=== PATIENT | male | born 1930 | race Caucasian/White ===

== ENCOUNTER 2018-11-21 15:37 | Inpatient (IN) | payer MEDICARE, OTHER ==
[~2018-11-21] VITALS: Ht 160 cm; Wt 56.4 kg
--- NOTE | ~2018-11-21 | PR ---
[place], [place] PROGRESS NOTE NAME: AICHA CLAYTON UNIT #: [id number] ROOM: 314 DOCTOR: NATALIYA BOYER MD BIRTHDATE: [birth year] DOS: 11/24/2018 INTERVAL NOTE CHIEF COMPLAINT: "Oh, good morning, I am coming to breakfast." SUMMARY OF THE VISIT: The patient was interviewed in his room as he was getting ready to go down to breakfast. He engaged readily in superficial, but somewhat confused conversation. There was no agitation or aggression. There was no mood lability. He did have processing issues and hence was somewhat disjointed, but pleasantly so. Outwardly, there were no signs of medication side effects. MENTAL STATUS: He remains alert and oriented to person, place, but not time. Mood does seem to be trending towards euthymia. Affect is much more appropriate. There is no artis, hypomania or psychosis. He does process conversation slowly and short term memory is poor. PLAN: I will increase Namenda from 5 mg a day to 5 mg twice a day as a plan to target at 10 mg b.i.d. dosing. I will check a valproic acid level in the a.m. to ensure that it is therapeutic. Continue to engage in individual and callaway milieu activity, returning to the least restrictive environment when psychiatrically stable. NATALIYA BOYER MD CM:PNTRANS [phone] NATALIYA BOYER MD 11/24/18 1229 interface
--- NOTE | ~2018-11-21 | PR ---
[place], [place] PROGRESS NOTE NAME: AICHA CLAYTON UNIT #: [id number] ROOM: 314 DOCTOR: JERE MIXON CNP BIRTHDATE: [birth year] DOS: 11/27/2018 CHIEF COMPLAINT: "Good morning." SUMMARY OF VISIT: The patient was then interviewed as he lies in bed. The patient was sleeping whenever I entered his room; however, he did arouse easily when I called his name. The patient reports that he slept well last night and that his appetite has been good. He reports that his mood is happy. The patient denies feeling irritable or agitated and he denies any anxiety. Staff reports that the patient has been pleasant and cooperative. He has not displayed any aggressive or anxious episodes. The patient did sleep well. He has been compliant with medication. MENTAL STATUS EXAMINATION: The patient is alert and oriented to person, place and time. He was pleasant and cooperative with me. No artis or hypomania noted. No delusions or paranoia noted. No psychotic symptoms noted. No auditory or visual hallucinations noted. The patient's mood was euthymic. His affect was congruent with mood. PLAN: I am going to increase the patient's Namenda 10 mg twice a day to get maximum benefit of the medication to help with his increased awareness, cognition, and his participation in activities of daily living. We will continue to monitor the patient for side effects and tolerability of the medication. Continue to encourage the patient to engage in individual and callaway milieu activity. Continue fall and safety precautions. Plan is to return the patient to the least restrictive environment once he is considered psychiatrically stable. Jere Mixon CNP CM:PNTRANS [phone] JERE MIXON CNP 11/28/18 0037 interface
--- NOTE | ~2018-11-21 | DS ---
[place], [place] DISCHARGE SUMMARY [id number] #: [id number] ROOM: 314 DOCTOR: NATALIYA BOYER MD BIRTHDATE: [birth year] DOS: 12/07/2018 CHIEF COMPLAINT: "I am here because my legs swelled up and I fell down the stairs." HISTORY OF PRESENT ILLNESS: This is an 88-year-old white male who is a resident of [place] in [place]. The patient was admitted to the [facility] Unit at [facility] due to significant behavioral changes. He has become increasingly combative and resistive to care. Most recently, he locked and barricaded himself into his bathroom attempting to stuff the toilet paper into the sink and toilet causing them to overflow. He was very religiously preoccupied and was religiously chanting well locked into the bathroom. He has become episodically noncompliant with his medication and has been resistive to hands on care to the point where he has actually become physically aggressive towards staff. These represent a significant change in his mental status and he was subsequently admitted to the U to rule out any organic factors to attempt to stabilize on medication and to determine the least restrictive environment to which he could return when stable. SUMMARY OF HOSPITAL COURSE: The patient was admitted to the unit where his citalopram was discontinued in lieu of Depakote in the hope that this would stabilize his mood lability. His donepezil was also discontinued in lieu of Exelon patch, which was started at 4.6 mg daily and during the course of his stay was gradually increased to its maximum dose of 13.3 mg daily. Additionally, this was augmented with Namenda 5 mg a day and again during the course of his stay, the dose of the Namenda was brought to its maximum dose of 10 mg twice daily. After a while it became very evident that the patient was suffering from a significant depressive component as he became very withdrawn and isolative in his room, remained in his bed, refused to eat or drink and was delusional regarding multiple buddhism topics. Along these lines, the Depakote was discontinued due to ineffectiveness and he was started on Remeron 15 mg at bedtime, which was augmented later with Zyprexa 2.5 mg at bedtime to decrease the psychotic component and also stabilize his mood. These medications when given in conjunction had a dramatic improvement. The patient began to leave his room spontaneously, did not resist care and actually was able to assist himself in dressing. He began eating 100% of his meals and was no longer agitated or aggressive. He tolerated the current medication regimen well and there was no sedation, somnolence, extrapyramidal symptoms or tardive dyskinesia noted. Once the patient was stabilized, it was felt that he could safely return back to [place] in [place]. MENTAL STATUS AT DISCHARGE: The patient is alert and oriented to person, place and that he knows he is in the hospital, certainly not to time. Mood does seem to be euthymic and he smiles readily upon approach and engages in brief superficial conversation. There is no symptom suggestive of hypomania or artis and there was no longer buddhism preoccupation or any type of delusion noted. There was no paranoia. Short term memory continued to have gaps, otherwise he was intact. DIAGNOSES UPON DISCHARGE: Major depression, recurrent with psychotic features [place], [place] DISCHARGE SUMMARY NAME: AICHA CLAYTON UNIT #: [id number] ROOM: 314 DOCTOR: NATALIYA BOYER MD BIRTHDATE: [birth year] and Alzheimer's dementia. DISPOSITION: The patient is returning to [facility] in [place]. All of his prescriptions have been e-scribed to the [facility] in [place]. At the time of discharge, he was medically and psychiatrically stable. NATALIYA BOYER MD CM:DISCHARG [phone] NATALIYA BOYER MD 12/07/18 1249 interface
--- NOTE | ~2018-11-21 | PR ---
[place], [place] PROGRESS NOTE NAME: AICHA CLAYTON UNIT #: [id number] ROOM: 314 DOCTOR: EJRE MIXON CNP BIRTHDATE: [birth year] DOS: 11/26/2018 CHIEF COMPLAINT: "I can get up to talk to you." SUMMARY OF THE VISIT: The patient was interviewed as he is lying in his bed. He did engage readily in conversation with me. He reports that he slept well last night and feels rested today. He reports that his appetite is good. He denies feeling anxious, agitated or irritable. Staff reports that the patient has been pleasant. He did agree to get a shower this morning. MENTAL STATUS EXAMINATION: The patient is alert and oriented to person, place and time with some memory gap. He was pleasant and cooperative with me. No artis or hypomania noted. No delusions or paranoia noted. No psychotic symptoms noted. No auditory or visual hallucinations noted. The patient's mood was calm. No irritability or aggression noted. Affect congruent with mood. PLAN: We will increase the patient's Exelon to 13.3 mg patch daily this will help to augment the Namenda and increase the patient's awareness and cognition. We will continue to monitor for effectiveness and side effects of medication. We will continue to encourage the patient to engage in individual and callaway milieu activity. Continue fall and safety precautions. Plan is to return to the patient to least restrictive environment once he is considered psychiatrically stable. Jere Mixon CNP CM:PNTRANS [phone] JERE MIXON CNP 11/27/18 0909 interface
--- NOTE | ~2018-11-21 | PR ---
[place], [place] PROGRESS NOTE NAME: AICHA CLAYTON UNIT #: [id number] ROOM: 314 DOCTOR: NATALIYA BOYER MD BIRTHDATE: [birth year] DOS: 12/04/2018 CHIEF COMPLAINT: "Oh, good morning. Breakfast was good." SUMMARY OF THE VISIT: The patient was interviewed as he was finishing his breakfast. He had just eaten in the last bit of [place] on his plate. Everything else was gone. He engaged readily in conversation, shaking my hand and being rather pleasant, although superficial. There was no agitation or aggression. There were no bizarre statements or any kind of other comments. He did seem to be alert and able to engage readily. MENTAL STATUS: He is alert and oriented to person, place, not time. Mood does seem to be more euthymic. Affect is more appropriate. There is no artis, hypomania or psychosis. Short term memory has gaps. PLAN: I will continue his current psychotropic regimen, engage in individual and callaway milieu activity, returning to the least restrictive environment when psychiatrically stable. NATALIYA BOYER MD CM:PNTRANS 9 [phone] NATALIYA BOYER MD 12/04/18930 interface
--- NOTE | ~2018-11-21 | PR ---
[place], [place] PROGRESS NOTE NAME: AICHA CLAYTON UNIT #: [id number] ROOM: 314 DOCTOR: NATALIYA BOYER MD BIRTHDATE: [birth year] DOS: 12/05/2018 INTERVAL NOTE CHIEF COMPLAINT: "Oh, good morning, thank you for asking." SUMMARY OF THE VISIT: The patient was interviewed as he was sitting waiting for breakfast. As I approached, he smiled readily and reached his hand out to shake mine and engaged readily in conversation that was pleasant and bright. He reports that he slept well and actually feels hungry and ready for breakfast. This is in granados contrast to the same time last week when the patient was barely eating or drinking and barely conversant. He was even spontaneous and wishing me a good morning and asking how I was feeling. MENTAL STATUS: He is alert and oriented to person, possibly place, not to time. Mood does seem to be strongly trending towards euthymia. Affect is much more appropriate. Speech rate and pattern is much more spontaneous and his responses tend to be more appropriate. There is no hypomania or artis. There is no gross psychosis. Short-term memory has gaps, otherwise he is intact. PLAN: I will continue his current psychotropic regimen, continue to engage in individual and callaway milieu activity, returning to the least restrictive environment when psychiatrically stable. NATALIYA BOYER MD CM:PNTRANS [phone] NATALIYA BOYER MD 12/05/18 0951 interface
--- NOTE | ~2018-11-21 | PR ---
[place], [place] PROGRESS NOTE NAME: AICHA CLAYTON UNIT #: [id number] ROOM: 314 DOCTOR: NATALIYA BOYER MD BIRTHDATE: [birth year] DOS: 12/06/2018 CHIEF COMPLAINT: "Oh, I am pretty good doctor." SUMMARY OF THE VISIT: The patient was interviewed as he was finishing his breakfast. At the time I interviewed him, he had most of his breakfast already eaten. He stopped and engaged in pleasant conversation. He was much more spontaneous and much more conversant than he had been at this time last week. He reports improved sleep and appetite and nurses concurred that both of these have improved over the last week. He also reports no side effects from the medications themselves. MENTAL STATUS: He is alert and oriented to person, place, approximate to time. Mood now is strongly trending towards euthymia. Affect is much more appropriate. There is no artis or hypomania. There is still some gap in short-term memory, but otherwise he is intact. PLAN: I will continue his current psychotropic regimen. Continue to engage in individual and callaway milieu activity with the ultimate plan to return to the least restrictive environment when psychiatrically stable. NATALIYA BOYER MD CM:PNTRANS [phone] NATALIYA BOYER MD 12/06/18 1309 interface
--- NOTE | ~2018-11-21 | PR ---
[place], [place] PROGRESS NOTE NAME: AICHA CLAYTON UNIT #: [id number] ROOM: 314 DOCTOR: JERE MIXON CNP BIRTHDATE: [birth year] DOS: 11/25/2018 CHIEF COMPLAINT: "Did anybody here see Jere?" SUMMARY OF VISIT: The patient was interviewed as he sat on the edge of his bed. He engaged readily in conversation with me. The patient reports that he slept well and that his appetite has been good. The patient denies feeling agitated or irritable. He denies feeling anxious. Staff reports that the patient has been taking medications as prescribed. No behaviors exhibited. MENTAL STATUS EXAMINATION: The patient was alert and oriented to person, place and time. He was pleasant and cooperative with me. No artis or hypomania noted. No delusions or paranoia noted. No psychotic symptoms noted. No auditory or visual hallucinations noted. The patient's mood was calm. Affect congruent with mood. No agitation or aggression noted. PLAN: I will increase the patient's Namenda to 5 mg in the morning and 10 mg at bedtime to increase awareness, cognition and ability for the patient to continue participating in activities of daily living. The patient's VPA level was 97.1. I will continue to monitor the patient for any side effects of medication, continue to encourage the patient to engage in individual and callaway milieu activity, continue fall and safety precautions. Plan is to return the patient to the least restrictive environment once he is considered psychiatrically stable. Jere Mixon CNP CM:PNTRANS [phone] JERE MIXON CNP 11/25/18 1039 interface
--- NOTE | ~2018-11-21 | WRIGHTHP ---
[place], [place] PATIENT HISTORY AND PHYSICAL EXAM [id number] #: [id number] ROOM: 316 DOCTOR: NATALIYA BOYER MD BIRTHDATE: [birth year] DOS: 11/22/2018 INITIAL PSYCHIATRIC EVALUATION CHIEF COMPLAINT: "I am here because my legs swelled up and I fell down the steps." HISTORY OF PRESENT ILLNESS: This is an 88-year-old white male who is a resident of [facility]. The patient was admitted to the [facility] Unit at [facility] due to significant behavioral changes. The patient has become increasingly combative and resistive to care. Most recently, he locked himself into his bathroom attempting to barricade the door. He was stuffing toilet paper into the sink and the toilet causing them to overflow. He has been extremely religiously preoccupied. He has been episodically noncompliant with his medication and has been resistive to hands on care to the point where he has been physically aggressive towards staff. Given this significant change in mental status, the patient was admitted to rule out organic factors to attempt to stabilize on medication, to engage in individual and callaway milieu activity and to return to the least restrictive environment when psychiatrically stable. PAST MEDICAL HISTORY: Remarkable for major depression, rectal bleeding, TIAs, left inguinal hernia, pacemaker insertion and Alzheimer's dementia. SOCIAL HISTORY: He does not smoke cigarettes, use illicit drugs or drink alcohol. ALLERGIES: He lists no known allergies. STRENGTHS: Ambulatory, good verbal skills. WEAKNESSES: Cognitive decline, poor coping skills. MENTAL STATUS: Upon admission, the patient is alert and oriented to person, place, approximate to time. He was rather tangential in his thinking and would go off into a rather lengthy explanation about things that oftentimes was not an answer to the question asked of him. He was pleasant, however, in doing so. He smiled readily. He was not agitated or aggressive. I do not see signs of hypomania or artis. I also did not see any prominent auditory or visual hallucinations or delusions. There is no religiosity during my initial interaction with him. DIAGNOSES: Intermittent explosive disorder, Alzheimer's dementia. PLAN: I have already discontinued his citalopram in lieu of Depakote and discontinued his donepezil in lieu of Exelon patch. I will add now Namenda 5 mg a day to augment the effectiveness of the Exelon patch. We will engage in individual and callaway milieu activity with the ultimate plan to return to the least restrictive environment when psychiatrically stable. [place], [place] PATIENT HISTORY AND PHYSICAL EXAM NAME: AICHA CLAYTON UNIT #: [id number] ROOM: [facility] DOCTOR: NATALIYA BOYER MD BIRTHDATE: [birth year] NATALIYA BOYER MD CM:HISPHYS:PATIENT HISTORY AND PHYSICAL EXAMINATION [phone] NATALIYA BOYER MD 11/22/18 0910 interface
[2018-11-21] MEDS ORDERED: ASPIR LOW81 MG PO (16:17)
[2018-11-21] MEDS ORDERED: COREG3.125 MG PO (16:18)
[2018-11-21] MEDS ORDERED: CITALOPRAM10 MG PO (16:19)
[2018-11-21] MEDS ORDERED: ARICEPT10 M1 PO (16:19)
[2018-11-21] MEDS ORDERED: IRON325 M3 PO (16:20)
[2018-11-21] MEDS ORDERED: LASIX40 MG PO (16:21)
[2018-11-21] MEDS ORDERED: XALATAN 0.005%2.5 ML INTRAOC (16:22)
[2018-11-21] MEDS ORDERED: ZESTRIL2.5 MG PO (16:22)
[2018-11-21] MEDS ORDERED: PRILOSEC20 M1 PO (16:24)
[2018-11-21] MEDS ORDERED: THEREMS-M1 EACH PO (16:24)
[2018-11-21] MEDS ORDERED: VITAMIN D31000 UNI1 PO (16:25)
[2018-11-21] MEDS ORDERED: VITAMIN E400 UNI2 PO (16:26)
[2018-11-21] MEDS ORDERED: COUMADIN2 M1 PO (16:28)
[2018-11-21] MEDS ORDERED: COUMADIN3 M1 PO (16:30)
--- NOTE | 2018-11-21 22:25 | NUR ---
AICHA CLAYTON a 88 year old M admitted via stretcher from the ADMITTING as a voluntary admission. Arrived on unit at 2225. ALLERGIES: NO KNOWN ALLERGIES. Vital signs are: 98.2-81-18 133/70. The client signed the following forms with stated understanding: Authorization For The Release of Medical Information, Clothing List, Consent to Voluntary Admission and Hospitalization, Consent and Release Forms/Receipt of Rights, Acknowledgement of Advance Directive Information, Behavioral Health Consent Form, and Informed Consent of Medications. Admitted under the services of Dr. ROSALIND LLANOS,[facility]. A search was conducted and hazardous articles were removed. Client was oriented to the unit. JOELLEN ROSALES PATIENT ADMITTED FROM [facility]. PATIENT WITH SCATTERED BRUISES TO BILATERAL UPPER EXTREMITIES AT VARIOUS STAGES OF HEALING AND SCRATCH TO RIGHT LOWER BACK WITH NO DRAINAGE. PATIENT WITH PACEMAKER AT LEFT CHEST WALL. PATIENT WITH HERNIA PRESENT TO LEFT LOWER QUADRANT ABOVE GROIN REGION. PATIENT WITH LEFT FOURTH LAYING UNDER THIRD TOE. TOE NAILS WITH JAGGED EDGES
--- NOTE | 2018-11-21 22:28 | NUR ---
DR. ARITA NOTIFIED OF NEW ADMISSION, STATED TO PUT CONSULT UNDER DR. CA.
[2018-11-21 22:37] VITALS: BP 133/70
[2018-11-21 22:41] VITALS: BP 133/70
--- NOTE | 2018-11-21 23:50 | NUR ---
DR. SINGLETARY ON FLOOR TO ASSESS PT. UPDATE PROVIDED.
--- NOTE | 2018-11-22 00:30 | NUR ---
DR SINGLETARY WITH ATTEMPT TO HAVE PATIENT SIGN ADVANCE DIRECTIVE DUE TO LIMITED INFORMATION OF CURRENT ADVANCE DIRECTIVE. PATIENT UNABLE TO SPECIFY WHICH DNR CODE STATUS AT THIS TIME. DR SINGLETARY WOULD LIKE HOSPITALIST IN THE MORNING TO ATTEMPT TO CLARFITY DNR CODE STATUS. AT THIS TIME, DR SINGLETARY WOULD CONSIDER PATIENT A DNRCCA UNTIL FURTHER CLARIFICATION
--- NOTE | 2018-11-22 00:35 | NUR ---
URINE SPECIMEN COLLECTED. URINE YELLOW AND WITH NO ODOR. URINE OUTPUT OF 300ML. NO COMPLAINTS OF DYSURIA
[2018-11-22 01:11] LABS: BILIRUBIN NEGATIVE (NEGATIVE); BLOOD NEGATIVE (NEGATIVE); CLARITY CLEAR (CLEAR); COLOR YELLOW (YELLOW); GLUCOSE NEGATIVE (NEGATIVE); KETONE NEGATIVE (NEGATIVE); LEUKO ESTERASE 1+ (NEGATIVE); NITRITE NEGATIVE (NEGATIVE); PH 5.5 (5.0-9.0); SPECIFIC GRAVITY 1.015 (1.005-1.030); UROBILINOGEN 0.2 E.U./dl (0.2-1.0)
[2018-11-22 01:33] LABS: HYALINE CAST 20-25
--- NOTE | 2018-11-22 01:52 | NUR ---
24 HR chart check completed.
--- NOTE | 2018-11-22 05:47 | NUR ---
Q15 MINUTE CHECKS MAINTAINED THROUGH OUT THE NIGHT. NOTED TO HAVE SLEPT APPROXIMATELY 4 HOURS OF SLEEP. PT DID WAKE UP ONCE INCONTINENT OF URINE.
[2018-11-22 07:19] LABS: BASO % 0.6 % (0.0-1.0); EOS # 0.2 10*3/uL (0.0-0.4); HEMATOCRIT 31.8 % (42.0-52.0); HEMOGLOBIN 9.6 g/dl (14.0-18.0); LYMPH # 1.3 10*3/uL (1.3-4.4); LYMPH % 24.4 % (27.0-41.0); MEAN CELL VOLUME 96.1 fl (80.0-94.0); MEAN CORPUSCULAR HGB CONC 30.2 g/dl (33.0-37.0); MONO # 0.6 10*3/uL (0.1-1.0); MONO % 11.8 % (3.0-9.0); NEUT # 3.2 10*3/uL (2.3-7.9); NEUT % 59.2 % (47.0-73.0); PLATELET COUNT AUTOMATED 164 10*3/uL (130-400); RED BLOOD COUNT 3.31 10*6/uL (4.50-5.90); RED CELL DISTRI WIDTH 13.6 % (0-14.5); WHITE BLOOD COUNT 5.4 10*3/uL (4.8-10.8)
[2018-11-22 07:43] LABS: POTASSIUM 4.2 mmol/L (3.5-5.1)
[2018-11-22 07:45] VITALS: BP 112/57
--- NOTE | 2018-11-22 07:49 | NUR ---
PHYSICAL THERAPY Nursing screen received. Physical therapy orders received. Thank you. Kathi Hatch,PT,DPT
--- NOTE | 2018-11-22 08:00 | NUR ---
Treatment Plan meeting with Dr. Looney RN, AT, SW and Wrapper Caser. Plan for discharge next week. Pt. arrived from [facility]. Will reach out to facility today to discuss discharge Planning.
--- NOTE | 2018-11-22 08:00 | NUR ---
Patient resting quietly with no c/o discomfort. Respirations easy and regular. Vital signs stable. No overt distress. MELISSA MACHADO
[2018-11-22 08:02] LABS: ALBUMIN 3.5 gm/dl (3.1-4.5); CREATININE 1.68 mg/dL (0.70-1.30); THYROID STIM HORMONE (HS) 1.51 uIU/ml (0.358-4.75); TOTAL PROTEIN 7.8 gm/dL (6.4-8.2)
--- NOTE | 2018-11-22 09:00 | NUR ---
DR. SANDOVAL NOTIFED OF PODIARTY CONSULT FOR NAIL CARE.
--- NOTE | 2018-11-22 11:40 | NUR ---
DR. BARBER AND DR. SOLORIO ON UNIT AT THIS TIME TO PERFORM NAIL CARE
--- NOTE | 2018-11-22 11:49 | NUR ---
AM GROUP/EXERCISE AND DISCUSSION PT ATTENDED AND PARTICIPATED IN ALL GROUP ACTIVITIES. PT EXHIBITED NO INAPPROPRIATE BEHAVIORS DURING GROUP. PT WAS VERY INVOLVED IN THE GROUP DISCUSSION.
--- NOTE | 2018-11-22 12:01 | NUR ---
Spoke with [facility] At [facility]. Pt. will return to [facility] at discharge when stable.
--- NOTE | 2018-11-22 15:00 | NUR ---
DR. HAWKINS NOTIFIED REGUARING PATIENT'S CODE STATUS WITH PATIENT'S DNR FORM FROM FACILITY.
--- NOTE | 2018-11-22 15:06 | NUR ---
PT ALERT AND ORIENTED X4, PLEASANT, COOPERATIVE WITH ASSESSMENT. PT WITHDRAWN TO SELF, DID NOT WISH TO SOCIALIZE WITH PEERS, WANTED TO STAY IN ROOM. PT REDIRECTED AND ENCOURAGED TO INTERACT WITH PEERS. PT ASSESSED FOR MOOD, AFFECT, AND ORIENTATION LEVEL. ASSESSED FOR DEPRESSED MOOD, SI/HI. ASSESSED FOR HALLUCINATIONS AND DELUSIONS. ASSESSED FOR ABILITY TO COMPLETE ADLs. ASSESSED FOR APPETITE AND SLEEP QUALITY. PT MOOD IS STABLE, AFFECT IS APPROPRIATE. PT ORIENTED TO ALL SPHERES. VERBAL RESPONSES APPROPRIATE TO CONTENT. ABLE TO VERBALIZE WANTS AND NEEDS TO STAFF. PT DENIES DEPRESSED MOOD, SI, INTENT OR PLAN. PT DENIES HALLUCINATIONS AND DELSUIONS. NO OVERT S/S OF ATTENDING TO INTERNAL STIMULI. PT AMBULATES INDEPENDENTLY IN HALLS WITH USE OF WHEELED WALKER, GAIT STEADY. PT ABLE TO FEED SELF WITH STAFF SETUP. CONTINENT OF BOWEL AND BLADDER. APPETITE GOOD, PT REPORTS GETTING RESTFUL SLEEP. WILL CONTINUE TO ENCOURAGE PARTICIPATION IN GROUP THERAPY FOR SOCIALIZATION AND SUPPORT. WILL CONTINUE TO MONITOR MOOD. WILL PROVIDE ASSISTANCE WITH ADL'S APPROPRIATE. WILL CONTINUE TO ENCOURAGE MEDICATION COMPLIANCE. WILL MONITOR APPETITE AND SLEEP QUALITY. CONTINUE Q15 MIN MONITORING PER POLICY FOR SAFETY.Y
--- NOTE | 2018-11-22 16:32 | NUR ---
Nursing screen and Occupational Therapy referral received. Thank you. Natalie Martínez OTR/l
--- NOTE | 2018-11-22 17:21 | NUR ---
PM GROUP/ MUSIC TRIVIA PT CHOSE NOT TO ATTEND BUT TO SLEEP IN BED AT THIS TIME. PT WILL CONTINUE TO BE ENCOURAGED TO ATTEND AND PARTICIPATE IN FUTURE GROUP SESSIONS.
[2018-11-22 20:40] VITALS: BP 113/87
--- NOTE | 2018-11-22 20:53 | NUR ---
EVENING/BINGO PT RESTING IN BED AT THIS TIME AND CHOSE TO CONTINUE SLEEPING. PT WILL CONTINUE TO BE ENCOURAGED OT ATTEND AN DPARTICIPATE IN FUTURE GROUP SESSIONS.
--- NOTE | 2018-11-23 00:07 | NUR ---
ALERT AND ORIENTED X4. ST/LT MEMORY DEFICITS NOTED. MOOD STABLE, PLEASANT, AND COOPERATIVE. DENIES HALLUCINATIONS, SI/HI, OR PAIN. NO S/S OF INTERACTING WITH INTERNAL STIMULI. NO DELUSIONAL THOUGHT PROCESS NOTED. REPIRATIONS EVEN AND UNLABORED ON ROOM AIR. MEDICATION COMPLIANT WITH NO DIFFICULTIES. ATE HS SNACK. GAIT STEADY WHILE UTILIZING WALKER. MILIEU SPECIALIST NOTIFIED THIS NURSE THAT PT IS BACK IN HIS ROOM AWAKE AND MAKING BIRD NOISES. FALLING STAR PROGRAM IN PLACE. Q15 MINUTE CHECKS MAINTAINED FOR SAFETY.
--- NOTE | 2018-11-23 00:25 | NUR ---
24 HR chart check completed.
--- NOTE | 2018-11-23 06:05 | NUR ---
Q15 MINUTE CHECKS MAINTAINED THROUGHOUT THE NIGHT. PT NOTED TO HAVE SLEPT APPROXIMATELY 4 HOURS OF INTERRUPTED SLEEP.
[2018-11-23 07:54] VITALS: BP 116/61
--- NOTE | 2018-11-23 08:00 | NUR ---
Treatment Plan meeting with Dr. Looney, RN, AT, SW and Bridge Toll Collector. Plan for discharge next week. Pt. is [employer] [facility]. Will return at discharge.
--- NOTE | 2018-11-23 08:16 | NUR ---
Patient resting quietly with no c/o discomfort. Respirations easy and regular. Vital signs stable. No overt distress. MELISSA MACHADO
--- NOTE | 2018-11-23 11:06 | NUR ---
Clinical Updates faxed to [facility] Attn: Nurse.
--- NOTE | 2018-11-23 11:35 | NUR ---
PHYSICAL THERAPY Physical therapy screen complete at this time. Patient does not required skilled PT services at this time. Thank you. Kathi Hatch,PT,DPT.
--- NOTE | 2018-11-23 12:01 | NUR ---
AM GROUP PT ATTENDED GROUP LATE AND READ FOR A LITTLE BIT BEFORE FALLING ASLEEP SITTING AT THE TABLE WITH THE GROUP. PT WAS EASILY AWAKENED. PT EXHIBITED NO INAPPROPRIATE BEHAVIORS DURING GROUP
--- NOTE | 2018-11-23 12:10 | NUR ---
Occupational Therapy referral received and screen completed. Nursing reports that patient is independent in functional mobility with wh walker and able to perform ADLs. At this time no further OT indicated. Thank you. Natalie Martínez OTR/L
--- NOTE | 2018-11-23 12:43 | NUR ---
Problem:PT ALERT AND ORIENTED X4, PLEASANT, COOPERATIVE WITH ASSESSMENT. PT WITHDRAWN TO SELF, DID NOT WISH TO SOCIALIZE WITH PEERS, WANTED TO STAY IN ROOM. Intervention; PT REDIRECTED AND ENCOURAGED TO INTERACT WITH PEERS. PT ASSESSED FOR MOOD, AFFECT, AND ORIENTATION LEVEL. ASSESSED FOR DEPRESSED MOOD, SI/HI. ASSESSED FOR HALLUCINATIONS AND DELUSIONS. ASSESSED FOR ABILITY TO COMPLETE ADLs. ASSESSED FOR APPETITE AND SLEEP QUALITY. Patient requested pastoral care. Result: PASTORAL CARE CAME IN TO TALK TO PATIENT, PATIENT TOLERATED INTERACTION WELL. PATIENT REMAINS SAFE ON THE UNIT. PATIENT GIVES VERBAL CONTRACT FOR SAFETY ON THE UNIT. PATIENT REMAIN SAFE ON THE UNIT, PATIENT DENIES ANY HI/SI. PLAN: CONTINUE TO MONITOR PATIENT FOR SAFETY, CONTINUE TO ENCOURAGE PATIENT TO ATTEND AND PARTICIPATE IN GROUPS, ENCOURAGE PATIENT TO SOCIALIZE WITH PEERS AND STAFF. PARTICIPATE IN GROUPS, Result: Plan:
[2018-11-23 20:37] VITALS: BP 118/65
--- NOTE | 2018-11-24 01:07 | NUR ---
NO ADVERSE BEHAVIORS NOTED. PT ALERT AND ORIENTED TO SELF, CONFUSED. MOOD STABLE. PT CALM, PLEASANT, AND COOPERATIVE. PT ISOLATIVE TO ROOM AND BED SINCE BEGINNING OF SHIFT, ONLY COMING DOWN FOR HS SNACK. PT MEDICATION COMPLIANT WITHOUT DIFFICULTY, UNABLE TO EDUCATE DUE TO COGNITION. PT DENIES SI/HI AND HALLUCINATIONS, NO NOTED RESPONDING TO INTERNAL STIMULI. NO PARANOIA/DELUSIONS OBSEVRED. NO PHYSICAL COMPLAINTS VOICED. PATIENT CURRENTLY LAYING DOWN WITH EYES CLOSED, RESPIRATIONS EASY AND REGULAR, NO SIGNS OR SYMPTOMS OF DISTRESS NOTED. PLAN IS TO PRESENT REALITY AND REDIRECT NEEDED. PROVIDE 1:1 FOR VENTILATION OF FEELINGS. ENCOURAGE MEDICATION COMPLIANCE AND EDUCATE. MAINTAIN Q 15 MIN CHECKS.
--- NOTE | 2018-11-24 01:20 | NUR ---
24 HOUR CHART CHECK COMPLETED.
--- NOTE | 2018-11-24 05:53 | NUR ---
PATIENT OBSERVED ON Q 15 CHECKS TO HAVE SLEPT APPROX 7 HOURS WITH NO AWAKENINGS OR SIGNS AND SYMPTOMS OF DISTRESS NOTED.
[2018-11-24 07:58] VITALS: BP 115/66
--- NOTE | 2018-11-24 08:00 | NUR ---
Treatment Plan meeting with Dr. Looney, RN, AT, SW and Stage Manager. Plan for discharge next week. Pt. to return to [facility].
--- NOTE | 2018-11-24 11:44 | NUR ---
[facility]U RETURNED CALL AND ADVISED THAT PT IS A DNRCC, ADVISED DR. HAWKINS AND HE STATED HE WILL COME AND SIGN THE PAPERWORK.
--- NOTE | 2018-11-24 11:48 | NUR ---
AM GROUP/BIRDHOUSES PT ATTENDED GROUP AND PARTICIPATED BY BUILDING A BIRDHOUSE AND WORKING A CROSSWORD PUZZLE. PT EXHIBITED NO INAPPROPRIATE BEHAVIORS DURING GROUP.
--- NOTE | 2018-11-24 15:38 | NUR ---
PM GROUP/LEISURE INTERESTS PT DID NOT ATTEND AFTERNOON GROUP THERAPY. PT WAS IN BED NAPPING
[2018-11-24 20:00] VITALS: BP 111/61
--- NOTE | 2018-11-25 00:24 | NUR ---
NO ADVERSE MOODS OR BEHAVIORS NOTED THIS SHIFT. ALERT TO SELF AND APPROXIAMTE TIME. CONFUSION AND ST/LT MEMORY DEFICITS NOTED. REORIENTATION INEFFECTIVE, REMAINS AT BASELINE. MOOD STABLE, ISOLATIVE TO SELF. ATE HS SNACK. MEDICATION COMPLAINT WITH NO DIFFICULTY. DENIES HALLUCINATIONS, SI/HI, OR PAIN. NO S/S OF INTERACTING WITH INTERNAL STIMULI. NO DELUSIONAL THOUGHT PROCESS NOTED. NO S/S OF DISTRESS NOTED. RESPIRATIONS EVEN AND UNLABORED ON ROOM AIR. STEADY WHILE AMBULATING WITH WALKER. INCONTINENT OF BLADDER. FALLING STAR PROGRAM IN PLACE. Q15 MINUTE CHECKS MAINTAINED FOR SAFETY.
--- NOTE | 2018-11-25 00:52 | NUR ---
24 HR chart check completed.
--- NOTE | 2018-11-25 05:35 | NUR ---
Q15 MINUTE CHECKS MAINTAINED THROUGHOUT THE NIGHT. NOTED TO HAVE SLEPT APPROXIMATELY 5 HOURS.
--- NOTE | 2018-11-25 08:00 | NUR ---
Treatment Plan meeting with Maxine GONZALEZ, RN, AT, SW and Elementary School Science Teacher. Plan for discharge next week. 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
[2018-11-25 09:35] VITALS: BP 117/97
--- NOTE | 2018-11-25 11:21 | NUR ---
DR. HUNTER ON UNIT TO ASSESS PT, UPDATE PROVIDED.
--- NOTE | 2018-11-25 12:05 | NUR ---
Spoke with Jac campbell Nurse at [facility]. Notified of plans to discharge next week. Pt. will return to [facility]. Clinical Updates faxed to facility.
--- NOTE | 2018-11-25 12:10 | NUR ---
AM GROUP PT DID NOT ATTEND MORNING GROUP THERAPY. PT WAS IN BED SLEEPING
--- NOTE | 2018-11-25 15:43 | NUR ---
PM GROUP/ART AND MUSIC PT CHOSE NOT TO ATTEND AFTERNOON GROUP THERAPY. PT STAYED IN ROOM TO NAP
[2018-11-25 20:38] VITALS: BP 116/66
--- NOTE | 2018-11-25 22:28 | NUR ---
P: PT ISOLATIVE TO ROOM THROUGHOUT THE DAY, COMING OUT FOR MEALS. REFUSED TO PARTICIPATE IN GROUPS/ACTIVITES I: ENCOURAGED PT TO PARTICIPATE IN GROUPS/ACTIVITES. ENCORUAGED SOCIALIZATION WITH STAFF AND PEERS R: PT ALERT TO PERSON, PLACE AND TIME. PT MED COMPLIANT WITHOUT DIFFICULTY, MED EDUCATION PROVIDED. NO HALLUCINATIONS OR DELUSIONS NOTED. PT DENIES ANY SUICIDAL THOUGHTS. PT CONTINUES TO COME OUT FOR MEALS ONLY, REFUSING TO PARTICIPATE IN GROUP. P: MONITOR PT BEHAVIORS ON Q15 MIN SAFETY CHECKS, ENCOURAGE GROUP PARTICIPATION AND SOCIALIZATION
--- NOTE | 2018-11-26 01:02 | NUR ---
Shift chart check completed.
--- NOTE | 2018-11-26 06:20 | NUR ---
PT SLEPT 6 HOURS THIS SHIFT. Q15 MINUTE SAFETY CHECKS MAINTAINED. SEE [facility] FLOWSHEET FOR SPECIFIC MONITORING.
[2018-11-26 06:40] VITALS: BP 118/72
--- NOTE | 2018-11-26 06:44 | NUR ---
MILIEU THERAPIST HEARD THUMP ON WALL WHILE COMPLETING HOC IN THE ADJOINING ROOM. MILIEU WENT TO INVESTIGATE AND NOTED PATIENT LEANING AGAINST THE WALL. LIGHT WAS OUT AND PT STATED HE WAS WALKING TO THE RESTROOM AND THOUGHT HE COULD SEE OK AND LOST HIS BALANCE AND FELL AGAINST THE WALL. VS STABLE. AREA CLEANSED WITH NSS AND TREATMENT APPLIED. DR ARITA NOTIFIED ON RESIDENT LUMBER DRIVER NUMBER. SHIFT SUPERVISIOR, JANA, UPDATED. PT IS HIS OWN PERSON AT THIS TIME. A&O X3. PT WAS LAUGHING ABOUT THE INCIDENT. V INCIDENT COMPLETED. ALL DI SCREENS COMPLETED AND CARE PLAN UPDATED.
[2018-11-26 07:53] VITALS: BP 116/57
--- NOTE | 2018-11-26 08:20 | NUR ---
Patient resting quietly with no c/o discomfort. Respirations easy and regular. Vital signs stable. No overt distress. MELISSA MACHADO
--- NOTE | 2018-11-26 11:59 | NUR ---
AM GROUP/EXERCISES/DISCUSSION PT REMAINED IN BED AT THIS TIME AN DIWLL CONTINUE TO BE ENCOURAGED TO ATTEND AN DPARTICIPATE IN FUTURE GROUP SESSIONS.
--- NOTE | 2018-11-26 15:37 | NUR ---
PT ISOLATIVE TO ROOM. PT ASSESSED FOR ORIENTATION LEVEL, MOOD AND AFFECT. ASSESSED FOR DEPRESSED MOOD, SI/HI. ASSESSED FOR HALLUCINATIONS AND DELUSIONS. ASSESSED FOR SLEEP QUALITY AND APPETITE. REDIRECTED OUT OF ROOM TO INTERACT WITH PEERS, ENCOURAGED TO PARTICIPATE IN GROUP THERAPY. PT ALERT, ORIENTED X3. MOOD IS STABLE, AFFECT IS BLUNTED. PT DENIES DEPRESSED MOOD. DENIES SI, INTENT OR PLAN. DENIES HALLUCINATIONS AND DELUSIONS. NO OVERT S/S OF ATTENDING TO INTERNAL STIMULI NOTED. PT STATES HE IS SLEEPING WELL AND EATING WELL. PT ONLY WILL COME OUT OF ROOM FOR MEALS DESPITE REDIRECTION, EDUCATION, AND ENCOURAGEMENT. WILL CONTINUE TO ENCOURAGE PT TO PARTICIPATE IN [facility] FOR SOCIALIZATION AND SUPPORT. WILL REDIRECT AND EDUCATE APPROPRIATE. WILL CONTINUE TO ENCOURAGE MEDICATION COMPLIANCE. Q 15 MIN MONITORING PER POLICY FOR SAFETY.
--- NOTE | 2018-11-26 15:58 | NUR ---
PM GROUP/LEISURE SKILLS PT CHOSE TO REMAIN IN BED AT THIS TIME. PT WILL BE ENCOURAGED TO ATTEND AND PARTICIPATE IN FUTURE GROUP SESSIONS.
--- NOTE | 2018-11-26 19:13 | NUR ---
Shift chart check completed.
[2018-11-26 20:00] VITALS: BP 105/56; BP 116/74
--- NOTE | 2018-11-26 23:31 | NUR ---
24 HR chart check completed.
--- NOTE | 2018-11-27 01:56 | NUR ---
P-CONFUSION. PATIENT ALERT WITH CONFUSION. PATIENT WITH SHORT TERM AND ASSISTED MEMORY DEFICITS. PATIENT WITH NO RESPIRATORY DISTRESS. PATIENT WITH NO HALLLUCINATIONS OR DELUSIONS. PATIENT WITH NO HOMICIDAL OR SUICIDAL IDEATIONS. I-REDIRECTION WITH 1:1 THERAPEUTIC INTERVENTIONS AND PRESENT REALTIY. EDUCATE AND ENCOURAGE MEDICATION COMPLIANCE R-PATIENT MEDICATION COMPLIANT. PATIENT REDIRECTED WITH DIRECTIONS TO BATHROOM AND TO ROOM. PATIENT INTERACTING WITH PEERS IN DINING AREA. PATIENT PROVIDED NOURISHMENT, FLUIDS, AND TOILETING. PATIENT AMBULATING ON UNIT WITH WHEELED WALKER WITH STEADY GAIT. P-CONTINUE TO ENCOURAGE MEDICATION COMPLIANCE, CONTINUE TO PRESENT REALITY, ENCOURAGE GROUP THERAPY WHILE AWAKE
--- NOTE | 2018-11-27 05:25 | NUR ---
PATIENT SLEPT 5 HOURS OF INTERRUPTED SLEEP THROUGHOUT SHIFT. Q 15 MINUTE CHECKS MAINTAINED
[2018-11-27 07:51] VITALS: BP 122/65
--- NOTE | 2018-11-27 08:20 | NUR ---
Shift chart check completed.
--- NOTE | 2018-11-27 12:21 | NUR ---
AM GROUP/EXERCISES/BRAIN GAMES/BEACH VOLLEYBALL PT ATTENDED AND PARTICIPATED IN ALL GROUP ACTIVITIES. PT PLEASANT AND ON TASK WITH NO INAPPROPRIATE BEHAVIORS OBSERVED BY THIS STAFF.PT WILL CONTINUE TO ATTEND AN DPARTICIPATE IN FUTURE GROUP SESSIONS.
--- NOTE | 2018-11-27 13:28 | NUR ---
PT LESS ISOLATIVE AND WITHDRAWN TODAY. PT ASSESSED FOR ORIENTATION LEVEL, MOOD AND AFFECT. ASSESSED FOR DEPRESSED MOOD, SI/HI. ASSESSED FOR HALLUCINATIONS AND DELUSIONS. ASSESSED FOR SLEEP QUALITY AND APPETITE. ENCOURAGED INTERACTION WITH PEERS, ENCOURAGED TO PARTICIPATE IN GROUP THERAPY. PT ORIENTED X3. MOOD IS STABLE, AFFECT APPROPRIATE. PT DENIES DEPRESSED MOOD, SI/HI. DENIES HALLUCINATIONS AND DELUSIONS. NO OVERT S/S OF ATTENDING TO INTERNAL STIMULI. PER OBSERVATION, PT IS SLEEPING AND EATING WELL. PT REPORTS THAT HE FEELS GOOD. PT PARTICIPATED IN GROUP THERAPY, INTERACTING WITH STAFF AND PEERS APPROPRIATELY. WILL CONTINUE TO MONITOR PT ORIENTATION, MOOD AND AFFECT. WILL CONTINUE TO ENCOURAGE ACTIVE PARTICIPATION IN GROUP THERAPY, WILL ENCOURAGE INTERACTION WITH PEERS AND STAFF. Q15 MIN MONITORING FOR SAFETY.
[2018-11-27 20:00] VITALS: BP 108/65
--- NOTE | 2018-11-27 22:42 | NUR ---
P-CONFUSION. PATIENT ALERT WITH CONFUSION. PATIENT WITH SHORT TERM AND SKILLED NURSING MEMORY DEFICITS. PATIENT WITH NO RESPIRATORY DISTRESS. PATIENT WITH NO HALLLUCINATIONS OR DELUSIONS. PATIENT WITH NO HOMICIDAL OR SUICIDAL IDEATIONS. I-REDIRECTION WITH 1:1 THERAPEUTIC INTERVENTIONS AND PRESENT REALTIY. EDUCATE AND ENCOURAGE MEDICATION COMPLIANCE R-PATIENT MEDICATION COMPLIANT. PATIENT REDIRECTED WITH DIRECTIONS TO BATHROOM AND TO ROOM. PATIENT INTERACTING WITH PEERS IN DINING AREA. PATIENT PROVIDED NOURISHMENT, FLUIDS, AND TOILETING. PATIENT AMBULATING ON UNIT WITH WHEELED WALKER WITH STEADY GAIT. P-CONTINUE TO ENCOURAGE MEDICATION COMPLIANCE, CONTINUE TO PRESENT REALITY, ENCOURAGE GROUP THERAPY WHILE AWAKE
--- NOTE | 2018-11-27 23:16 | NUR ---
24 HR chart check completed.
--- NOTE | 2018-11-28 05:58 | NUR ---
PATIENT SLEPT 3 HOURS OF INTERRUPTED SLEEP THROUGHOUT THE SHIFT. Q 15 MINUTE CHECKS MAINTAINED
[2018-11-28 07:54] VITALS: BP 132/57
--- NOTE | 2018-11-28 08:00 | NUR ---
Treatment Plan meeting with Dr. Looney, RN, AT, SW and Transportation Department Supervisor. Plan for discharge at the end of the week. Pt. will return to [facility].
--- NOTE | 2018-11-28 09:28 | NUR ---
AICHA CLAYTON [id number] Please refer to the physician's history and physical for past medical history, comorbid conditions, and allergies. Diagnosis: INTERMITTENT EXPLOSIVE DISORDER Nash Score: 19,LOW OR NO RISK WOUND DESCRIPTIONS: ( new skin impairment ) Wound Number: 1 Location of the wound: left forearm Type of wound: skin tear Thickness: Partial Size: 0.6cm x 1.8cm x 0.1cm Tunneling: none Undermining: none Sinus Tract: none Presence of Exudate: Sanguineous Amount: Light Color: Red Odor: None Periwound Skin Appearance: Normal Wound edges: approximated Pain (associated with wound): none at time of assessment How does patient state this happened? pt stated he was trying to go to the bathroom without the lights on lost his balance and fell against the wall Surface the patient is resting on: Proform SKIN PREVENTION RECOMMENDATION: 1. Pressure redistribution support surface as appropriate 2. Elevate heels 3. Remove boots/TEDS every shift and reapply 4. Head of bed 30 degrees as tolerated 5. Assess nutrition and hydration 6. Manage moisture 7. Avoid the use of containment devices while in bed 8. Use absorptive products on surfaces limit layers of linens on bed 9. Turn and reposition every 1-2 hours in bed and every 1 hour in chair as tolerated 10. Weight shifts every 15 minutes while up in chair 11. Offloading with pillows or device to keep heels elevated off bed 12. Monitor skin at least every shift 13. Inspect under medical devices twice a day WOUND TREATMENT RECOMMENDATIONS: Clarify skin tear guidelines: Cleanse left forearm with nss and apply sureprep around the wound hydrogel to wound bed and cover with optifoam gentle daily and prn for soiling.
--- NOTE | 2018-11-28 10:37 | NUR ---
Dr. Ureña notified of wound care recommendations.
--- NOTE | 2018-11-28 10:56 | NUR ---
Upon discharge recommend patient to follow up for wound care in outpatient setting continue current wound care orders at discharging facility.
--- NOTE | 2018-11-28 12:31 | NUR ---
Nutritional Support Services Note: Recommend Ensure po TID with meals, to help increase kcal and protein to promote healing of skin tear. Regular diet as ordered appropriate at this time. Will follow as needed. Suzette Nice Rdn Ld
--- NOTE | 2018-11-28 15:20 | NUR ---
P: PT ISOLATIVE TO ROOM THROUGOUT THE DAY0, REFUSING TO PARTICIPATE IN GROUPS/ACTIVITIES. PT REFUSED BREAKFAST AND LUNCH. PT RESISTIVE TO TAKING MEDICATIONS I: ENCOURAGED GROUP PARTICIAPTION AND SOCIALIZATION, ENCOURAGED PO INTAKE, PROVIDED MED EDUCATION, PROVIDED EMOTIONAL SUPPORT AND 1:1 FOR PT TO VOICE FEELINGS R: PT ALERT TO PERSON, PLACE AND TIME. PT MED COMPLIANT WITH MUCH ENCOURAGEMENT, CONTINUES TO REFUSE GROUP PARTICIPATION AND MEALS STATED "I'M NOT HUNGRY, I WANT TO SEE A GRINDER HAND FIRST" PT AMBULATORY WITH WHEELED WALKER, GAIT STEADY, PT REQUIRES REMINDING TO WALK WITH HEAD UP NOT LOOKING AT THE GROUND. PT CONTINENT OF BOWEL AND BLADDER. P: CONTINUE TO MONITOR PT BEHAVIORS ON Q15 MIN SAFETY CHECKS, ENCOURAGE MED COMPLIANCE AND PROVIDE MED EDUCATION, MESSAGE LEFT FOR GRINDER HAND AT [facility], MESSAGE LEFT WITH PASTORAL CARE RE: PT WISHING TO SEE CHEONDOISM PRIES, ENCOURAGE GROUP PARTICIPATION AND SOCIALIZATION, ENCOURAGE PO INTAKE
--- NOTE | 2018-11-28 15:59 | NUR ---
Nursing screen received and chart reviewed. Occupational therapy screen completed on 11/23/18. No change in status indicating a need for OT referral at this time. If patient should have decline in ADLs or functional mobility, then please refer to OT. Hilary Martínez OTR/L
--- NOTE | 2018-11-28 16:12 | NUR ---
PM GROUP/BINGO/LEISURE SKILLS PT ENCOURAGED TO ATTEND AN DPARTICIPATE BUT PT CHOSE TO REMAIN SLEEPING IN ROOM AT THIS TIME. PT WILL CONTINUE TO BE ENCOURAGED TO ATTEND AN DPARTICIPATE IN FUTRUE GROUP SESSIONS.
[2018-11-28 20:00] VITALS: BP 132/58
--- NOTE | 2018-11-28 22:50 | NUR ---
P-CONFUSION. PATIENT ALERT WITH CONFUSION. PATIENT WITH SHORT TERM AND CUSTODIAL MEMORY DEFICITS. PATIENT WITH NO RESPIRATORY DISTRESS. PATIENT WITH NO HALLLUCINATIONS OR DELUSIONS. PATIENT WITH NO HOMICIDAL OR SUICIDAL IDEATIONS. I-REDIRECTION WITH 1:1 THERAPEUTIC INTERVENTIONS AND PRESENT REALTIY. EDUCATE AND ENCOURAGE MEDICATION COMPLIANCE R-PATIENT MEDICATION COMPLIANT. PATIENT AMBULATING SLOWLY AND UNSTEADY IN ROOM TO THE BATHROOM AND ASKING FOR ASSISTANCE WITH AMBULATION. PATIENT OFFERED NOURISHMENT AT AND PATIENT REFUSED SNACK. PATIENT INCONTINENT OF BOWEL AND BLADDER P-CONTINUE TO ENCOURAGE MEDICATION COMPLIANCE, CONTINUE TO PRESENT REALITY, ENCOURAGE GROUP THERAPY WHILE AWAKE
--- NOTE | 2018-11-28 23:53 | NUR ---
24 HR chart check completed.
--- NOTE | 2018-11-29 05:09 | NUR ---
Patient slept approx. 7 hours throughout shift. Q 15 minute safety checks continued and maintained.
[2018-11-29 07:50] VITALS: BP 133/67
--- NOTE | 2018-11-29 08:00 | NUR ---
Treatment Plan meeting with Dr. Looney, RN, AT, SW and Diet Therapist. Plan for discharge next week. Pt. will return to [facility].
--- NOTE | 2018-11-29 08:15 | NUR ---
PT AWAKE, ALERT, GETTING READY FOR BREAKFAST AT THIS TIME. ON UNIT TO SEE PT AT THIS TIME, UPDATE GIVEN.
--- NOTE | 2018-11-29 11:00 | NUR ---
P- CONFUSION. ST/LT MEMORY GAPS NOTED. PT C/O POOR APPETITE D/T UPSET STOMACH. DENIES SUICIDAL IDEATION OR PLAN TO GO ON "HUNGER STRIKE" FOR MANDAEISM REASONINGS, PT STATES "MY STOMACH JUST DOESN'T FEEL RIGHT". ISOLATIVE TO ROOM AT TIMES. PT HUMS TO SELF AT TIMES. I- ORIENTATION, MOOD AND BEHAVIOR ASSESSED. ASSESSED PT FOR SI/HI, INTENT OR PLAN. ASSESSED PT FOR S/S HALLUCINATIONS, PARANOIA AND/OR DELUSIONS. MEDICATIONS ADMINISTERED PER PHYSICIAN'S ORDERS. ASSISTANCE WITH ADL CARE PROVIDED NEEDED. ENCOURAGED PT TO ATTEND AND PARTICIPATE IN [facility] GROUPS AND ACTIVITIES. R- PT IS ALERT AND ORIENTED TO PERSON, STATES HE IS IN "THE PSYCHIATRIC SECTION". UNABLE TO STATE WHICH HOSPITAL HE IS IN. EASILY REORIENTED. APPEARS CONFUSED IN OTHER AREAS. MEMORY GAPS NOTED. RESPS EASY AND EVEN ON ROOM AIR. MOOD APPEARS STABLE, AFFECT ANIMATED AT TIMES. SPEECH IS SOFT, COHERENT, ABLE TO MAKE NEEDS KNOWN WITHOUT DIFFICULTY. PT DENIES SI/HI, INTENT OR PLAN. PT DENIES FEELING SAD OR DEPRESSED. PT DENIES HALLUCINATIONS, NO RESPONSE TO INTERNAL SITMULI NOTED. PT HUMS TO SELF AT TIMES. MEDICATION COMPLIANT WITHOUT DIFFICULTY. ISOLATIVE TO ROOM AT TIMES. PT OFFERED C/O UPSET STOMACH AND STATES THIS IS WHY HE HASN'T BEEN EATING WELL. PT DENIES GOING ON AN INTENTIONAL "HUNGER STRIKE". PT MET WITH NECK SKEWER TODAY. UPDATED WITH PT C/O NAUSEA WITH NEW ORDERS RECIEVED FOR PRN PHENERGAN AND LABS TO BE DRAWN IN AM. NO DISTRESS NOTED. P- PLAN TO CONTINUE CURRENT TREATMENT, CONTINUE TO MONITOR MOOD AND BEHAVIORS, PROVIDE APPROPRIATE REORIENTATION, REDIRECTION AND 1:1 NEEDED. CONTINUE TO ENCOURAGE MEDICATION COMPLIANCE WELL GROUP ATTENDANCE AND PARTICIPATION.
--- NOTE | 2018-11-29 11:15 | NUR ---
ON UNIT TO SEE PT AT THIS TIME, MADE AWARE LAST PT/INR DONE ON 11/22 WAS 2.0. ALSO MADE AWARE PT C/O NAUSEA AND STATES THIS THE REASON FOR HIS POOR PO INTAKES RECENTLY.
--- NOTE | 2018-11-29 11:56 | NUR ---
AM GROUP PT ATTENDED MORNING GROUP THERAPY BUT DID NOT PARTICIPATE. A CHANGE IN PT BEHAVIOR COMPARED TO LAST WEEK WAS NOTED BY THIS MEDICATION SPECIALIST. PT KEPT HEAD DOWN AND WOULD HUM OR MAKE STRANGE SOUNDS UPON EXHALING. WHEN ASKED WHAT HE WAS HUMMING? PT RESPONDED, "I'M NOT HUMMING" PT CHANGE IN BEHAVIOR WAS REPORTED TO HIS NURSE. PT WILL BE ENCOURAGED TO CONTINUE TO ATTEND AND PARTICIPATE IN GROUP
--- NOTE | 2018-11-29 15:47 | NUR ---
PM GROUP/RELAXATION TECHNIQUES PT WAS IN BED SLEEPING AT THE START OF GROUP AND DID NOT RESPOND TO MY KNOCKING. PT REMAINED IN BED AND DID NOT ATTEND GROUP THERAPY
--- NOTE | 2018-11-29 16:25 | NUR ---
OFFERED PT PRN PHENERGAN PRIOR TO DINNER, PT DECLINED STATES STOMACH "FEELS GREAT" AND HE WILL BE EATING DINNER TONIGHT.
[2018-11-29 20:00] VITALS: BP 120/62
--- NOTE | 2018-11-29 22:40 | NUR ---
P-CONFUSION. PATIENT ALERT WITH CONFUSION. PATIENT WITH SHORT TERM AND CARE HOME MEMORY DEFICITS. PATIENT WITH NO RESPIRATORY DISTRESS. PATIENT WITH NO HALLLUCINATIONS OR DELUSIONS. PATIENT WITH NO HOMICIDAL OR SUICIDAL IDEATIONS. I-REDIRECTION WITH 1:1 THERAPEUTIC INTERVENTIONS AND PRESENT REALTIY. EDUCATE AND ENCOURAGE MEDICATION COMPLIANCE R-PATIENT MEDICATION COMPLIANT. PATIENT AMBULATING SLOWLY WITH STEADY GAIT IN ROOM AND HALLWAY AND USE OF ASSISTIVE DEVICE. PATIENT OFFERED NOURISHMENT AT HS AND FLUIDS. PATIENT PLEASANT AND INTERACTIVE WITH NURSING STAFF AND PEERS. P-CONTINUE TO ENCOURAGE MEDICATION COMPLIANCE, CONTINUE TO PRESENT REALITY, ENCOURAGE GROUP THERAPY WHILE AWAKE
--- NOTE | 2018-11-30 00:35 | NUR ---
24 HR chart check completed.
--- NOTE | 2018-11-30 05:35 | NUR ---
PATIENT SLEPT >7 HOURS OF UNINTERRUPTED SLEEP THROUGHOUT SHIFT. Q 15 MINUTE CHECKS MAINTAINED
[2018-11-30 07:27] LABS: CREATININE 1.62 mg/dL (0.70-1.30); POTASSIUM 3.7 mmol/L (3.5-5.1)
[2018-11-30 07:36] LABS: INTERNATIONAL NORM RATIO 7.2 (2.0-3.5)
--- NOTE | 2018-11-30 07:50 | NUR ---
LAB CALLED, CRITICAL INR RESULT 7.2. DR. HAWKINS MADE AWARE. STATES TO HOLD COUMADIN TODAY.
--- NOTE | 2018-11-30 08:00 | NUR ---
Treatment Plan meeting with Dr. Looney, RN, AT, SW and Embedded Engineer. Plan for discharge Next week. Pt. will return to [facility].
[2018-11-30 08:06] VITALS: BP 147/72
--- NOTE | 2018-11-30 11:54 | NUR ---
AM GROUP PT WAS IN BED RESTING AT THE START OF MORNING GROUP THERAPY AND WHEN INVITED TO ATTEND GAVE NO RESPONSE
--- NOTE | 2018-11-30 13:14 | NUR ---
Spoke with Angeles chand Nurse at [facility]. Notified of plans to discharge Next week. Clinical Updates faxed to facility.
--- NOTE | 2018-11-30 14:05 | NUR ---
pt is angry/irritable. withdrawn to self. pt assessed for orientation level, mood, and affect. pt assessed for depressed mood, root of angry verbalizations, si/hi. assessed for hallucinations and delusions. assessed for sleep quality and appetite. pt is alert, oriented x3. mood is labile, affect is flat. pt denies depressed mood. states he does not feel any better here. pt provided with wound care, states "oh you are going to try to kill me now?". pt later apologizes for "rude" behavior. states "i didn't mean to be rude, i am just mad" pt encouraged to further verbalize thought process, states "i'm just tired and hungry and i'm getting weak". pt encouraged to ambulate, eat, and participate in group therapy. pt reports sleeping "ok" and eating, although he refused breakfast. pt incontinent of bladder while in bed this am. will continue to encourage medication compliance. will continue to encourage pt to verbalize negative thought process. will continue to monitor pt mood, sleep quality and appetite. will continue to provide HOC as appropriate. will continue to encourage participation in group therapy/activity for socialization and support. q15 min monitoring per policy for safety.
[2018-11-30 19:48] VITALS: BP 100/58
--- NOTE | 2018-12-01 01:18 | NUR ---
PT SMILED WHEN SPOKEN TO BUT WOULD NOT RESPOND WITH CONVERSATIONS, WHEN ASKED HOW HE WAS FEELING PT SMILED AT THIS NURSE AND STATED HE WAS READY FOR BED AND TIRED. PT HAD NO SI/HI OR DELUSIONS PRESENT, HEAD WAS SLUMPED ON TABLE IN LOUNGE. MEDICATION COMPLIANT, PT ASSISTED MINIMALLY WITH HOC TO GET TO BED WITH STAFF, AT THIS TIME PT IS RESTING QUIETLY IN BED WILL CONTINUE TO MONITOR PT AND ENCOURAGE INTERACTION WITH OTHERS, WILL ASSIST PT WITH HOC NEEDED. ENCROUAGE MOBILITY AND INDEPENDANCE
--- NOTE | 2018-12-01 05:05 | NUR ---
PT SLEPT FROM 2200, WITH NO AWAKENINGS
--- NOTE | 2018-12-01 07:36 | NUR ---
WAQAS FROM LAB CALLED ADVISED OF CRITICAL PT/INR- 46.5 AND 4.59[address] SPOKE WITH DR. HAWKINS AT 0737 RE: PT/INR RESULTS NO FURTHER ORDERS AT THIS TIME.
--- NOTE | 2018-12-01 08:00 | NUR ---
Treatment Plan meeting with Dr. Looney, RN, AT, SW and Automotive Painter Helper. Plan for discharge next week. Pt. will return to [facility].
[2018-12-01 08:17] LABS: INTERNATIONAL NORM RATIO 4.6 (2.0-3.5)
[2018-12-01 09:21] VITALS: BP 82/54
--- NOTE | 2018-12-01 09:37 | NUR ---
SPOKE WITH DR. HAWKINS AT [phone] RE: PT BP OF 82/54M, HELD BP MEDS AND LASIX PER NURSING JUDGEMENT, ENCOURAGING FLUIDS. NO FURTHER ORDERS AT THIS TIME.
--- NOTE | 2018-12-01 11:52 | NUR ---
AM GROUP/EXERCISE AND BALL TOSS PT ATTENDED GROUP AND PARTICIPATED IN ALL ACTIVITIES. PT DID FALL ASLEEP AFTER EXERCISES BUT WHEN AWAKE, PT JOINED IN THE BALL TOSS. PT EXHIBITED NO INAPPROPRIATE BEHAVIORS DURING GROUP
--- NOTE | 2018-12-01 13:54 | NUR ---
P: ISOLATIVE AT TIMES. I: ONE ONE ONE FOR EMOTIONALS SUPPORT, REDIRECTION NEEDED. ENCOURAGED TO ATTENT GROUP WITH PARTICITPATION. R: EFFECTIVE; PATIENT PARTICIPATED IN BOTH GROUP SESSION. PATIENT IS ALERT AND ORIENTED TO PERSON, PLACE AND TIME; ABLE TO VOICE NEEDS. DENIES ANY HALLUCINATIONS, DELUSIONS, HI/SI OR PAIN. 1 PERSON ASSIST VERBAL CUEING FOR ACTIVITIES OF DAILY LIVING, CONTINENT OF BOWEL AND BLADDER. SET UP FOR MEALS, INTAKES ARE GOOD, ENCOURAGING FLUIDS. MEDICAITON COMPLAINT WITH EDUCATION PROVIDED. Q 15 MINUTE SAFETY CHECKS MAINTAINED. NO OUTBURST OR AGGRESSION OBSERVED. P: CONTINUE TO MONITOR MOOD, ISOLATING SELF IN ROOM/BATHROOM AND AGGRESSION TOWARDS STAFF. PROVIDE ONE ON ONE FOR EMOTIONAL SUPPORT, ENCOURAGE PATIENT TO ATTEND GROUP SESSION AND REDIRECT NEEDED.
--- NOTE | 2018-12-01 15:43 | NUR ---
PM GROUP PT ATTENDED AFTERNOON GROUP AND SAT AT A TABLE WITH PEERS. PT WORKED A WORDSEARCH FOR QUITE A WHILE BEFORE FALLING ASLEEP SITTING IN HIS CHAIR. PT EXHIBITED NO INAPPROPRIATE BEHAVIORS DURING GROUP.
--- NOTE | 2018-12-01 16:00 | NUR ---
Shift chart check completed.
--- NOTE | 2018-12-01 16:59 | NUR ---
Nursing screen received. After chart review and seemingly no change in functional status, no PT warranted at this time. Should pt have a decline in function, please refer to PT. Thank you, Roseann Cassidy, PT.
[2018-12-01 20:00] VITALS: BP 118/82
--- NOTE | 2018-12-01 22:49 | NUR ---
24 HR chart check completed.
--- NOTE | 2018-12-02 00:53 | NUR ---
P-ISOLATIVE I-PROVIDE VERBAL INTERVENTION FOR EMOTIONAL SUPPORT. ADMINISTER MEDICATIONS, MONITOR SLEEP R-PT HAS BEEN ISOLATIVE TO ROOM RESTING IN BED QUIETLY. HAS MOVED ABOUT THE UNIT VIA W/C WITH 2 ASSISTS. ALERT & ORIENTED X 3. COMPLIANT WITH MEDICATIONS P-CONTINUE TO MONITOR, PROVIDE PHYSICAL ASSISTANCE & EMOTIONAL SUPPORT NEEDED.
--- NOTE | 2018-12-02 05:36 | NUR ---
PT HAS SLEPT PAST 1944.
[2018-12-02 07:29] LABS: INTERNATIONAL NORM RATIO 2.1 (2.0-3.5)
--- NOTE | 2018-12-02 07:57 | NUR ---
DR. HAWKINS NOTIFIED OF PT/INR RESULTS.
--- NOTE | 2018-12-02 08:00 | NUR ---
Treatment Plan meeting with Dr. Looney, RN, SW and Auto Body Mechanic. Plan for discharge Next week when Stable. Patient will return to [facility].
[2018-12-02 08:03] VITALS: BP 109/55
--- NOTE | 2018-12-02 09:35 | NUR ---
NOTIFIED PRN ATIVAN ORDER FROM ADMISSION . GAVE VERBAL ORDER FOR ATIVAN 1MG PO/IM Q4H PRN AGITATION/ANXIETY X 30 DAYS. READ BACK AND VERIFIED. WITNESSED BY 2ND RN CAMRON.MIRA.
--- NOTE | 2018-12-02 13:54 | NUR ---
P: ISOLATIVE, DEPRESSSED WITH FLAT AFFECT. I: ONE ON ONE, ENCOURAGE INTERACTIION WITH OTHER PATIENTS AND STAFF. R: SOMEWHAT EFFECTIVE. PATIENT IS ALERT AND ORIENTED PERSON PLACE, SOMEWHAT TIME AND SITATION. MOOD IS DEPRESSED WITH FLAT AFFECT. DENIES ANY HALLUCINATIONS, DELUSIONS, HI/SI OR PAIN. MEDICAITON COMPLAINT WITH EDUCATION. Q 15 MINUTE SAFETY CHECKS MAINTAINED. 1 PERSON ASSIST WITH ACTIVITIES OF DAILY LIVING, INCONTINENT OF BOWEL AND BLADDER. SET UP FOR MEALS, INTAKES ARE GOOD WITH ADEQUATE FLUIDS. IN DINING ROOM FOR MEALS, DID NOT SOCIALIZE WITH OTHER PATIENTS. NO AGGRESSION OR OUTBURST NOTED. P: CONTINUE TO MONITOR MOOD, MEDICAITON COMPLIANCE, AGGRESSION TOWARDS STAFF; PROVIDE ONE ON ONE AND REDIRECTION NEEDED.
--- NOTE | 2018-12-02 16:02 | NUR ---
Shift chart check completed.
--- NOTE | 2018-12-02 16:10 | NUR ---
Clinical Updates faxed to [facility].
[2018-12-02 20:00] VITALS: BP 108/58
--- NOTE | 2018-12-02 20:20 | NUR ---
24 HR chart check completed.
--- NOTE | 2018-12-02 21:00 | NUR ---
COREG 3.125 MG HELD TONIGHT PER [address] ARITA. B/P 108/58 PULSE 74
--- NOTE | 2018-12-02 21:32 | NUR ---
P-DEPRESSED MOOD I-PROVIDE VERBAL INTERVENTION FOR EMOTIONAL SUPPORT. ADMINISTER MEDICATIONS, MONITOR SLEEP R-MOOD IS DEPRESSED WITH A SLIGHTLY BRIGHTER AFFECT. MAINTAINS EYE CONTACT. SAT IN THE DINING ROOM QUIETLY & ATE SNACK. HAS MOVED ABOUT THE UNIT VIA W/C. ALERT & ORIENTED X 3. COMPLIANT WITH MEDICATIONS. SHOWERED WITH 2 STAFF ASSISTS & WAS CONTINENT OF BOWEL & BLADDER. P-CONTINUE TO MONITOR, PROVIDE PHYSICAL ASSISTANCE & EMOTIONAL SUPPORT NEEDED.
--- NOTE | 2018-12-03 05:32 | NUR ---
PT HAS SLEPT PAST 2214.
[2018-12-03 07:18] LABS: INTERNATIONAL NORM RATIO 1.5 (2.0-3.5)
--- NOTE | 2018-12-03 08:12 | NUR ---
SEPIDEH COOK MAYONNAISE ON UNIT TO SEE PT AT THIS TIME, UPDATE GIVEN.
[2018-12-03 08:15] VITALS: BP 124/62
--- NOTE | 2018-12-03 09:30 | NUR ---
DR. THRASHER NOTIFIED ON PT/INR RESULTS AND CURRENT DAILY COUMADIN DOSE.
--- NOTE | 2018-12-03 11:38 | NUR ---
AM GROUP/AROMATHERAPY/EXERCISES PT ATTENDED AND PARTICIPATED IN GROUP. PT PLEASANT AND ON TASK AT THIS TIME WITH NO SEXUALLY INAPPROPRIATE BEHAVIORS EXPRESSED. PT WILL OCNTINUE TO ATTEND AN DPARTICIPATE IN FUTURE GROUP SESSIONS.
--- NOTE | 2018-12-03 13:51 | NUR ---
DR. CA ON UNIT TO ASSESS PATIENT.
--- NOTE | 2018-12-03 14:00 | NUR ---
PATIENT IS ALERT TO PERSON, PLACE, SITUATION AND SOMEWHAT TIME; ABLE TO VOICE NEEDS. MOOD IS STABLE WITH BRIGHTER AFFECT. DENIES ANY HALLUCINATIONS, DELUSIONS, HI/SI OR PAIN. MEDICATION COMPLAINT WITH EDUCATION PROVIDED. Q 15 MINUTE SAFETY CHECKS MAINTAINED. 1 PERSON ASSIST WITH ACTIVITIES OF DAILY LIVING, CONTINENT OF BOWEL AND BLADDER, SET UP FOR MEALS, INTAKES ARE GOOD WITH ADEQUATE FLUIDS. SELF PROPELS IN WHEELCHAIR ON UNIT, USES WALKER FOR TRANSFERS; ONE PERSON ASSIST. INTERACTIVE WITH STAFF AND PARTICIPATES IN GROUP SESSIONS. CONTINUE TO MONITOR AGGRESSION; PROVIDE ONE ON ONE AND REDIRECTION NEEDED.
--- NOTE | 2018-12-03 15:52 | NUR ---
Shift chart check completed.
--- NOTE | 2018-12-03 15:55 | NUR ---
PM GROUP/MOVIE/RELAXTION PT ATTENDED AND PARTICIPATED IN GROUP. PT ASSISTED STAFF IN DECIDING ON MOVIE TO WATCH. PT STATES "I LIKE MUSICALS, AND COMEDIES" THIS STAFF PUT ON A COMEDY MUSICAL FOR PT. PT FELL ASLEEP DURING PARTS OF MOVIE ON AND OFF. PT DID NOT BECOME SEXUALLY INAPROPRIATE AT ANYTIME DURING GROUP. PT WILL CONTINUE TO ATTEND AND PARTICIPATE IN FUTURE GROUP SESSIONS.
[2018-12-03 19:13] VITALS: BP 130/66
--- NOTE | 2018-12-03 19:39 | NUR ---
24 HR chart check completed.
--- NOTE | 2018-12-03 20:50 | NUR ---
P-MILDLY DEPRESSED MOOD I-PROVIDE VERBAL INTERVENTION FOR EMOTIONAL SUPPORT. ADMINISTER MEDICATIONS, MONITOR SLEEP R-MOOD IS MILDLY DEPRESSED BUT PLEASANT. STATED HE FEELS, "PRETTY GOOD". MAINTAINS EYE CONTACT. SAT IN THE DINING ROOM WATCHING TV & HUMMING OUTLOUD. ATE SNACK. MOVES ABOUT THE UNIT VIA W/C. ALERT & ORIENTED X 3 & SOMEWHAT TO SITUATION. COMPLIANT WITH MEDS. REQUIRES 2 ASSISTS. P-CONTINUE TO MONITOR, PROVIDE PHYSICAL ASSISTANCE & EMOTIONAL SUPPORT NEEDED.
--- NOTE | 2018-12-04 05:28 | NUR ---
PT HAS SLEPT PAST 2129.
[2018-12-04 07:13] LABS: INTERNATIONAL NORM RATIO 1.5 (2.0-3.5)
[2018-12-04 07:20] VITALS: BP 122/54
--- NOTE | 2018-12-04 07:29 | NUR ---
DR. THRASHER NOTIFIED OF PT/INR RESULTS, CURRENTLY ON COUMANDIN 2.5MG DAILY.
--- NOTE | 2018-12-04 11:43 | NUR ---
PATIENT IS ALERT AND ORIENT TO PERSON, PLACE, SITUATION, ABLE TO RECALL MONTH AND YEAR. MEMORY GAPS NOTED. DENIES ANY HALLUCINATIONS, DELUSIONS, HI/SI OR PAIN. Q 15 MINUTE SAFETY CHECKS. MEDICAITON COMPLIANT WITH EDUCATION PROVIDED. 1 PERSON ASSIST WITH ACTIVITIES OF DAILY LIVING, CONTINENT OF BOWEL AND BLADDER, SET UP FOR MEALS, INTAKES ARE GOOD WITH ADEQUATE FLUIDS. INTERACTIVE WITH OTHER PATIENTS AND STAFF. GOOD EYE CONTACT WITH NURSE DURING CONVERSATIONS. CONTINUE TO MONTIOR FOR AGGRESSION; PROVIDE ONE ON ONE AND REDIRECTION NEEDED.
--- NOTE | 2018-12-04 14:20 | NUR ---
DR. CA ON UNIT TO ASSESS PATIENT. UPDATED ON PT/INR RESULTS.
--- NOTE | 2018-12-04 16:10 | NUR ---
Shift chart check completed.
[2018-12-04 19:20] VITALS: BP 120/77
--- NOTE | 2018-12-04 22:00 | NUR ---
PT PLEASANT COOPERATIVE, MEDICATION COMPLIANT THIS EVENING. NO SI/HI OR DELUSIONS NOTED. WHEN TALKING WITH PT HE MADE EYE CONTACT AND SMILED AT THIS NURSE. NO COMPLAINT OF PAIN AND PROPELED SELF IN WHEEL CHAIR AND TRANSFERS VIA 1 ASSIST AT THIS TIME. PT RESTING IN BED AT THIS TIME COMFORTABLY. CONTINUE TO MONITOR 15 MIN CHECKS AND PROMOTE INDEPENDANCE WITH ALL ASPECTS OF CARE
--- NOTE | 2018-12-05 02:30 | NUR ---
24 HR chart check completed.
--- NOTE | 2018-12-05 05:22 | NUR ---
PT SLEPT 7+ HOURS NO AWAKENINGS,
[2018-12-05 06:53] LABS: INTERNATIONAL NORM RATIO 1.9 (2.0-3.5)
[2018-12-05 07:45] VITALS: BP 133/68
--- NOTE | 2018-12-05 09:29 | NUR ---
PT ALERT, ORIENTED X3. PT IS PLEASANT, COOPERATIVE WITH ASSESSMENT. PT MOOD IS STABLE, AFFECT IF APPROPRIATE. PT SMILING, RESPONDS APPROPRIATELY TO VERBAL CUES. PT DENIES DEPRESSED MOOD. STATES HE IS FEELING BETTER. PT REPORTS SLEEPING WELL AND EATING WELL. STAFF REPORT THAT PT IS VERBALIZING URGE TO VOID, STAFF ASSIST +1 TO BATHROOM. PT IN WHEELCHAIR AT THIS TIME, PROPELS SELF T/O HALLS WITHOUT DIFFICULTY. PT DENIES SI/HI. DENIES HALLUCINATIONS OR DELUSIONS. NO OVERT S/S OF ATTENDING TO INTERNAL STIMULI. NO OVERT PARANOIA OR OTHER DELUSIONS AT THIS TIME. Q 15 MIN MONITORING. FALLING STAR PROGRAM MAINTAINED FOR SAFETY. WILL CONTINUE TO ENCOURAGE PT TO PARTICIPATE IN GROUP THERAPY FOR SOCIALIZATION AND SUPPORT.
--- NOTE | 2018-12-05 09:54 | NUR ---
AICHA CLAYTON [id number] Please refer to the physician's history and physical for past medical history, comorbid conditions, and allergies. Diagnosis: INTERMITTENT EXPLOSIVE DISORDER Nash Score: 19,LOW OR NO RISK WOUND DESCRIPTIONS: ( follow up visit ) Wound Number: 1 Location of the wound: left forearm Type of wound: skin tear Thickness: Partial Size: 0.8cm x 1.4cm x 0.1cm Tunneling: none Undermining: none Sinus Tract: none Presence of Exudate: Sanguineous Amount: Light Color: Red, yellow Odor: None Periwound Skin Appearance: Normal Wound edges: approximated Pain (associated with wound): none at time of assessment How does patient state this happened? pt stated he was trying to go to the bathroom without the lights on lost his balance and fell against the wall Surface the patient is resting on: Proform SKIN PREVENTION RECOMMENDATION: 1. Pressure redistribution support surface as appropriate 2. Elevate heels 3. Remove boots/TEDS every shift and reapply 4. Head of bed 30 degrees as tolerated 5. Assess nutrition and hydration 6. Manage moisture 7. Avoid the use of containment devices while in bed 8. Use absorptive products on surfaces limit layers of linens on bed 9. Turn and reposition every 1-2 hours in bed and every 1 hour in chair as tolerated 10. Weight shifts every 15 minutes while up in chair 11. Offloading with pillows or device to keep heels elevated off bed 12. Monitor skin at least every shift 13. Inspect under medical devices twice a day WOUND TREATMENT RECOMMENDATIONS: Clarify skin tear guidelines: cleanse left forearm with nss and apply sureprep around the wound therahoney to wound bed and cover with optifoam gentle daily and prn for soiling.
--- NOTE | 2018-12-05 11:08 | NUR ---
Treatment Plan meeting with Dr. Looney, RN, AT, and Meat Soaker. Plan for discharge Wed/. Pt. will return to [facility].
--- NOTE | 2018-12-05 12:00 | NUR ---
AM GROUP PT ATTENDED MORNING GROUP THERAPY AND PARTICIPATED BY WORKING ON A CROSSWORD PUZZLE. PT WAS NOTED TO BE HUMMING A LITTLE BUT NO INAPPROPRIATE BEHAVIORS.
--- NOTE | 2018-12-05 12:02 | NUR ---
Dr. Do notified of wound care recommendations.
--- NOTE | 2018-12-05 14:01 | NUR ---
Clinical Updates faxed to [facility].
--- NOTE | 2018-12-05 15:36 | NUR ---
PM GROUP PT ATTENDED AFTERNOON GROUP AND PARTICIPATED BY LISTENING TO MUSIC, SOCIALIZING WITH PEERS AND WORKING A CROSSWORD PUZZLE. PT WAS VERY TALKATIVE AND EXHIBITED NO INAPPROPRIATE BEHAVIORS.
[2018-12-05 19:42] VITALS: BP 109/63
--- NOTE | 2018-12-05 20:49 | NUR ---
EVENING/AROMATHERAPY/COLORTHERAPY PT ATTENDED AND PARTICIPATED. PT PLAYED A COUPLE GAMES OF CHECKERS WITH THIS STAFF. PT FOCUSED ON ACTIVITY WITH NO INAPPROPRIATE BEHAVIORS EXPRESSED. PT WILL CONTINUE TO ATTEND AND PARTICIPATE IN FUTURE GROUP SESSIONS.
--- NOTE | 2018-12-05 22:42 | NUR ---
PT PLEASANT THIS EVEING, SMILING WITH STAFF INTERACTIVE. PT MEDICATION COMPLIANT WITH NO SI/HI OR DELUSIONS PRESENT. PT AFFECT BRIGHT, OBERVED PT PLAYING CHECKERS WITH A STAFF MEMBER GOOD THOUGHT PROCESS THROUGHOUT, PLANNING AND REACTIVE TO HER MOVES. PT POSTURE WAS STRAIGHTER THEN PREVIOUS DAYS, APPEARED TO BE MORE SURE OF HIMSELF WITH LESS DROWSINESS NOTED. PT ASKED FOR ASSISTANCE TO GO TO BED AND WAS CONTINENT THIS SHIFT. PT REPORTS HE IS FEELING BETTER HE PROPELED HIMSELF TO HIS ROOM. WILL CONTINUE TO MONITOR FOR MOODS AND BEHAVIORS AND MEDICATION EFFECTIVENESS AT THIS TIME.
--- NOTE | 2018-12-06 05:18 | NUR ---
PT SLEPT 7+ HOURS
--- NOTE | 2018-12-06 05:18 | NUR ---
24 HR chart check completed.
--- NOTE | 2018-12-06 07:41 | NUR ---
PATIENT AWAKE, SITTING IN DINING ROOM, LISTENING TO MUSIC, WAITING ON BREAKFAST.
[2018-12-06 08:02] VITALS: BP 104/54
--- NOTE | 2018-12-06 08:07 | NUR ---
MANUAL BP 104/54, NO COMPLAINTS OF FEELING DIZZY, FLUIDS ENCOURAGED.
--- NOTE | 2018-12-06 08:47 | NUR ---
Treatment Plan meeting with Dr. Looney, RN, AT, and Decator Operator. Plan for discharge Wed/. Pt. will return to [facility] at discharge.
--- NOTE | 2018-12-06 08:50 | NUR ---
Dr. Do notified of wound care recommendations.
--- NOTE | 2018-12-06 09:02 | NUR ---
DR THRASHER NOTIFIED OF BP 104/64 WITH RADIAL PULSE 76. HOLD LASIX AND GIVE COREG AND LISINOPRIL.
--- NOTE | 2018-12-06 11:42 | NUR ---
AM GROUP/DISCUSSION PT WAS PRESENT FOR MORNING GROUP THERAPY AND PARTICIPATED BY WORKING A CROSSWORD PUZZLE, LISTENING TO BIG BAND AND HUMMING ALONG AND LISTENING TO THE CONVERSATION OF PEER. PT EXHIBITED NO INAPPROPRIATE BEHAVIORS DURING GROUP.
--- NOTE | 2018-12-06 13:47 | NUR ---
DR. CA ON UNIT TO ASSESS PATIENT.
--- NOTE | 2018-12-06 15:48 | NUR ---
PM GROUP/LEISURE INTERESTS PT ATTENDED AFTERNOON GROUP THERAPY AND PARTICIPATED BY WORKING A CROSSWORD PUZZLE AND LISTENING TO MUSIC. PT WAS FOCUSED AND ON TASK. PT EXHIBITED NO INAPPROPRIATE BEHAVIORS DURING GROUP
--- NOTE | 2018-12-06 18:31 | NUR ---
PATIENT IS ALERT AND ORIENT TO PERSON, PLACE AND TIME; ABLE TO VOICE NEEDS. MOOD IS STABLE. DENIES ANY HALLUCINATIONS, DELUSIONS, HI/SI OR PAIN. NO RESPONSE TO INTERNAL STIMULI. MEDICATION COMPLAINT WITH EDUCATION PROVIDED. Q 15 MINUTE SAFETY CHECKS MAINTAINED. 1 PERSON ASSIST WITH ACTIVITIES OF DAILY LIVING, CONTINENT OF BOWEL AND BLADDER, SET UP FOR MEALS, INTAKES ARE GOOD WITH ADEQUATE FLUIDS. INTERACTIVE WITH STAFF, PARTICIPATING IN GROUP SESSIONS. CONTINUE TO MONITOR AGGRESSION; PROVIDE ONE ON ONE AND REDIRECTIONS.
[2018-12-06 20:00] VITALS: BP 101/57
--- NOTE | 2018-12-06 20:45 | NUR ---
EVENING/GAMES PT PLEASANT AND ON TASK ENGAGING IN A GAME OF CHECKERS WITH PEER AND THEN ENGAGED IN A GAME OF [place]AHTZEE WHICH PT STATES "I HAVE NEVER PLAYED, BUT I CAN TRY" PRAISE GIVEN FOR TRYING SOMETHING NEW. PT DID NOT EXPRESS ANY INAPPROPRIATE BEHAVIORS AT THIS TIME AND WILL CONTINUE TO ATTEND AND PARTICIPATE IN FUTURE GROUP SESSIONS.
--- NOTE | 2018-12-06 21:57 | NUR ---
MOOD IS STABLE & PLEASANT. MAINTAINS EYE CONTACT. SAT IN THE DINING ROOM & PARTICIPATED IN GROUP ACTIVITIES. ATE SNACK. MOVES ABOUT THE UNIT VIA W/C & HAS BEEN INDEPENDENT WITH TRANSFERS. ALERT & ORIENTED X 3. COMPLIANT WITH MEDS. ABLE TO MAKE HIS NEEDS KNOWN. CONTINUE TO MONITOR, PROVIDE PHYSICAL ASSISTANCE & EMOTIONAL SUPPORT NEEDED. BP 101/57, PULSE 76. NOTIFIED DR ORELLANA REGARDING HS COREG & SHE STATED TO GO AHEAD & GIVE IT.
--- NOTE | 2018-12-07 00:18 | NUR ---
24 HR chart check completed.
--- NOTE | 2018-12-07 05:02 | NUR ---
PT HAS SLEPT QUIETLY PAST 2144.
--- NOTE | 2018-12-07 06:51 | NUR ---
PT HAD A LARGE BM THIS AM.
[2018-12-07 07:11] VITALS: BP 111/69
[2018-12-07 07:14] LABS: INTERNATIONAL NORM RATIO 2.3 (2.0-3.5)
--- NOTE | 2018-12-07 08:00 | NUR ---
Treatment Plan meeting with Dr. Looney RN, AT, and Hides And Skins Colorer. Plan for discharge today. Pt. will return to [facility] where he is a [facility] Resident. Call placed to [facility] and Spoke with Nurse Pate and Advised of plans to discharge today. Call placed to Pt. nephew Tc Koch and notified him that patient was discharging today. Tc will transport patient back to [place] via personal Vehicle.
--- NOTE | 2018-12-07 08:00 | NUR ---
PATIENT IS AWAKE, ASSESSED BY DR. BOYER IN DINING ROOM EATING BREAKFAST.
[2018-12-07] MEDS ORDERED: MEMANTINE HCL10 MG PO (09:12)
[2018-12-07] MEDS ORDERED: MIRTAZAPINE15 M2 PO (09:12)
[2018-12-07] MEDS ORDERED: EXELON13.3 MG/21 T (09:12)
[2018-12-07] MEDS ORDERED: ZYPREXA2.5 MG PO (09:12)
--- NOTE | 2018-12-07 09:21 | NUR ---
NOTIFIED OF PLAN TO DISCHARGE PT TODAY AT 12:30 BACK TO [facility]. MADE AWARE INR THIS AM 2.3, PT RECIEVING COUMADIN 3MG. NNO RECIEVED AT THIS TIME.
--- NOTE | 2018-12-07 09:30 | NUR ---
MANUAL BP 84/44 WITH APICAL 76. NO COMPLAINTS OF BEING DIZZY. DR WHALEN NOTIFIED. HOLD LASIX AND BP MEDICAITONS.
[2018-12-07 10:39] VITALS: BP 84/44
--- NOTE | 2018-12-07 11:57 | NUR ---
AM GROUP PT ATTENDED AND PARTICIPATED IN MORNING GROUP THERAPY BY WORKING A CROSSWORD PUZZLE AND LISTENING TO BIG BAND MUSIC. PT EXHIBITED NO INAPPROPRIATE BEHAVIORS DURING GROUP. PT IS SET TO BE DISCHARGED FROM THE UNIT THIS AFTERNOON
--- NOTE | 2018-12-07 12:38 | NUR ---
NURSE TO NURSE REPORT GIVEN TO STAN FROM [facility]. ALL DISCHARGE INSTRUCTIONS DISCUSSED WITH PATIENT. PATIENT SIGNED ALL PAPER WORK. ALL BELONGING GATHERED.
--- NOTE | 2018-12-07 12:51 | NUR ---
PATIENT'S FAMILY PRESENT, PATIENT READY FOR DISCHARGE. ALL BELONGING AND DISCHARGE INSTRUCTIONS SENT WITH PATIENT OFF UNIT. PATIENT ASSIST OFF UNIT IN WHEELCHAIR WITH STAFF ASSISTANCE OFF UNIT TO PRIVATE VEHICLE.
--- NOTE | 2018-12-07 14:39 | NUR ---
Patient discharged today to [facility]. Follow-up will be with the [facility]'s visiting psychiatrist. While at [facility], pt's behaviors improved. Pt was no longer making strange sounds and he was not religiously preoccupied. Pt was pleasant with staff and peers at time of discharge.
== END 2018-12-07 12:51 | DRG 883 ==
LOC: LAB 15:37 → 3N 15:38 → EDSTATUS 15:38 → 3N 15:41
PROVIDERS: Internal Medicine; ADMIT Psychiatry & Neurology Psychiatry
PROC: 0HBRXZZ Excision of Toe Nail, External Approach (ICD-10-PCS; principal; 2018-11-22)
DX: F63.81 Intermittent explosive disorder (principal); I48.91 Unspecified atrial fibrillation; I50.9 Heart failure, unspecified; I11.0 Hypertensive heart disease with heart failure; K21.9 Gastro-esophageal reflux disease without esophagitis; H40.9 Unspecified glaucoma; G30.9 Alzheimer's disease, unspecified; F02.80 Dementia in other diseases classified elsewhere, unspecified severity, without behavioral disturbance, psychotic disturbance, mood disturbance, and anxiety; F32.9 Major depressive disorder, single episode, unspecified; I73.9 Peripheral vascular disease, unspecified; D50.9 Iron deficiency anemia, unspecified; E55.9 Vitamin D deficiency, unspecified; B35.1 Tinea unguium; Z95.0 Presence of cardiac pacemaker; Z82.49 Family history of ischemic heart disease and other diseases of the circulatory system; Z98.49 Cataract extraction status, unspecified eye; Z80.8 Family history of malignant neoplasm of other organs or systems; Z79.82 Long term (current) use of aspirin; Z79.899 Other long term (current) drug therapy; Z91.14 Patient's other noncompliance with medication regimen

== ENCOUNTER 2019-01-31 20:55 | Inpatient (IN) | payer MEDICARE, OTHER ==
[~2019-01-31] VITALS: Ht 165.1 cm; Wt 59.9 kg
[~2019-01-31 20:55] MED LIST: ARICEPT10 M1 PO; ASPIR LOW81 MG PO; CITALOPRAM10 MG PO; COREG3.125 MG PO; COUMADIN2 M1 PO; COUMADIN3 M1 PO; EXELON13.3 MG/21 T; IRON325 M3 PO; LASIX40 MG PO; MEMANTINE HCL10 MG PO; MIRTAZAPINE15 M2 PO; PRILOSEC20 M1 PO; THEREMS-M1 EACH PO; VITAMIN D31000 UNI1 PO; VITAMIN E400 UNI2 PO; XALATAN 0.005%2.5 ML INTRAOC; ZESTRIL2.5 MG PO; ZYPREXA2.5 MG PO
[2019-01-31] MEDS ORDERED: FLUONAZOLE100 M1 PO (22:14)
[2019-01-31] MEDS ORDERED: COUMADIN2 M1 PO (22:25)
[2019-01-31] MEDS ORDERED: WARFARIN SODIUM3 MG PO ×2 (22:28→22:29)
[2019-01-31] MEDS ORDERED: ANUCORT-HC25 MG R (22:30)
[2019-01-31] MEDS ORDERED: NYAMYC15 GM T (22:32)
--- NOTE | 2019-01-31 23:30 | NUR ---
AICHA CLAYTON a 88 year old M admitted via stretcher from the ADMITTING as a voluntary admission by IN[facility]. Arrived on unit at 2330PM. ALLERGIES: NONE. Vital signs are: 98.7-76-18 131/64. TELEPHONE PERMISSION FOR THE FOLLOWING FORMS RECIEVED FROM [facility]DU MR. DOUGLAS WITNESS BY Rah HARMON RN with stated understanding: Authorization For The Release of Medical Information, Clothing List, Consent to Voluntary Admission and Hospitalization, Consent and Release Forms/Receipt of Rights, Acknowledgement of Advance Directive Information, Behavioral Health Consent Form, and Informed Consent of Medications. Admitted under the services of Dr. ROSALIND LLANOS,[facility]. A search was conducted and hazardous articles were removed. Client was oriented to the unit. KATY SANCHEZ
--- NOTE | 2019-01-31 23:31 | NUR ---
ASKED WHY HE WAS SENT. GUESS THEY WANTED TO GET RID OF ME. YES I BARKED AT THEM BUT IT WAS JUST A JOKE. I DID SPEND A GOOD AMOUNT OF TIME THERE CAUSE WHEN YOU GOTTA GO YOU GOTTA GO BUT NOT 4 HOURS.
[2019-01-31 23:51] VITALS: BP 131/64
--- NOTE | 2019-02-01 03:20 | NUR ---
DR CALZADA HERE TO SEE CLIENT
[2019-02-01 06:39] LABS: BASO % 0.5 % (0.0-1.0); EOS # 0.1 10*3/uL (0.0-0.4); HEMATOCRIT 30.5 % (42.0-52.0); HEMOGLOBIN 9.4 g/dl (14.0-18.0); LYMPH # 1.4 10*3/uL (1.3-4.4); LYMPH % 20.5 % (27.0-41.0); MEAN CORPUSCULAR HGB 29.3 pg (27.0-31.0); MEAN CORPUSCULAR HGB CONC 30.8 g/dl (33.0-37.0); MEAN PLATELET VOLUME 10.1 fl (9.6-12.3); MONO # 0.9 10*3/uL (0.1-1.0); MONO % 13.6 % (3.0-9.0); NEUT # 4.2 10*3/uL (2.3-7.9); NEUT % 63.2 % (47.0-73.0); PLATELET COUNT AUTOMATED 169 10*3/uL (130-400); RED BLOOD COUNT 3.21 10*6/uL (4.50-5.90); RED CELL DISTRI WIDTH 14.9 % (0-14.5); WHITE BLOOD COUNT 6.6 10*3/uL (4.8-10.8)
[2019-02-01 07:11] LABS: INTERNATIONAL NORM RATIO 2.8 (2.0-3.5)
[2019-02-01 07:22] LABS: ALBUMIN 3.3 gm/dl (3.1-4.5); POTASSIUM 4.6 mmol/L (3.5-5.1)
[2019-02-01 07:36] LABS: CREATININE 1.53 mg/dL (0.70-1.30); THYROID STIM HORMONE (HS) 1.05 uIU/ml (0.358-4.75); TOTAL PROTEIN 7.4 gm/dL (6.4-8.2)
--- NOTE | 2019-02-01 08:30 | NUR ---
Treatment Plan meeting with Dr. Looney, RN, AT, SW and Aircraft Mechanic. Plan for discharge next week. Pt. came to [facility] from [facility]. Will reach out to facility today to discuss discharge Planning.
[2019-02-01 08:56] VITALS: BP 134/95
--- NOTE | 2019-02-01 11:34 | NUR ---
PT WHEEZING HE WALKS DOWN THE KNIGHT. PULSE OX WNL. DR ARITA UPDATED AND STATED HE WOULD ENTER BREATHING TREATMENTS FOR Q6PRN.
--- NOTE | 2019-02-01 11:54 | NUR ---
Spoke with Lin at [facility] who is the Kosher Butcher of the facility. Pt. will return at discharge.
--- NOTE | 2019-02-01 15:38 | NUR ---
PM GROUP/TEAR BOTTLES PT ATTENDED AND PARTICIPATED IN ALL GROUP ACTIVITIES. PT WAS QUIET AND ON TASK. PT EXHIBITED NO AGITATION OR AGGRESSION WHILE IN GROUP
[2019-02-01 20:00] VITALS: BP 131/88
--- NOTE | 2019-02-01 22:01 | NUR ---
24 HR chart check completed.
--- NOTE | 2019-02-02 05:39 | NUR ---
PT HAS SLEPT PAST 21OO WITH 1 BRIEF AWAKENING TO GO TO THE BATHROOM
[2019-02-02 07:21] LABS: INTERNATIONAL NORM RATIO 2.7 (2.0-3.5)
[2019-02-02 08:00] VITALS: BP 127/83
--- NOTE | 2019-02-02 08:45 | NUR ---
Patient resting quietly with no c/o discomfort. Respirations easy and regular. Vital signs stable. No overt distress. MELISSA DAILEY
--- NOTE | 2019-02-02 10:15 | NUR ---
DR. WHALEN ON FLOOR TO ASSESS PT.
--- NOTE | 2019-02-02 10:19 | NUR ---
PHYSICAL THERAPY Physical therapy screen complete. Nursing reports patient is ambulatory with [facility]. No PT needs at this time. Discharge PT orders. Thank you. Kathi Hatch,PT,DPT
--- NOTE | 2019-02-02 10:30 | NUR ---
Dr. Looney met with Nursing staff this a.m. for treatment Plan meeting. Plan for discharge next week with return to [facility].
[2019-02-02 11:18] LABS: BILIRUBIN NEGATIVE (NEGATIVE); BLOOD NEGATIVE (NEGATIVE); CLARITY CLEAR (CLEAR); COLOR YELLOW (YELLOW); GLUCOSE NEGATIVE (NEGATIVE); KETONE NEGATIVE (NEGATIVE); LEUKO ESTERASE NEGATIVE (NEGATIVE); NITRITE NEGATIVE (NEGATIVE); SPECIFIC GRAVITY 1.015 (1.005-1.030); UROBILINOGEN 0.2 E.U./dl (0.2-1.0)
--- NOTE | 2019-02-02 11:58 | NUR ---
AM GROUP/EXERCISE PT ATTENDED AND PARTICIPATED IN ALL GROUP ACTIVITIES. PT EXHIBITED NO AGITATION OR AGGRESSION WHILE IN GROUP
--- NOTE | 2019-02-02 12:29 | NUR ---
Mr Lee is ambulating independently around behavioral health and reports complete dressing independently. Patient is able to feed self independently. No further acute occupational therapy at this time. Brianna Yang OTR/L
--- NOTE | 2019-02-02 15:37 | NUR ---
PM GROUP/PAINTING AND CARDS PT ATTENDED AND PARTICIPATED IN ALL GROUP ACTIVITIES. PT EXHIBITED NO AGITATION NOR ANY INAPPROPRIATE BEHAVIORS WHILE IN GROUP
--- NOTE | 2019-02-02 18:53 | NUR ---
PT PLEASANT, COOPERATIVE WITH ASSESSMENT. INTERMITTENT CONFUSION REORIENTED APPROPRIATE. MOOD IS STABLE, AFFECT IS APPROPRIATE. PT IS SOMEWHAT WITHDRAWN TO SELF. PT ENCOURAGED TO PARTICIPATE IN GROUP THERAPY. WILL CONTINUE TO ENCOURAGE MEDICATION COMPLIANCE AND PARTICIPATION IN GROUP THERAPY. Q15 MIN MONITORING PER POLICY.
[2019-02-02 20:00] VITALS: BP 133/72
--- NOTE | 2019-02-02 23:20 | NUR ---
P-CONFUSION I-REDIRECTION WITH 1:1 THERAPEUTIC INTERVENTIONS. EDUCATE AND ENCOURAGE MEDICATION COMPLAINCE. R-PATTENT WITH NO HALLCINATIONS OR DELUSIONS, PATIENT WITH NO SUICIDAL OR HOMICIDAL IDEATIONS P-CONTINUE TO ENCOURAGE MEDICATION COMPLIANCE, CONTINUE TO PRESENT REALITY, ENCOURAGE GROUP THERAPY WHILE AWAKE
[2019-02-03 08:00] VITALS: BP 113/80
[2019-02-03 08:03] LABS: INTERNATIONAL NORM RATIO 3.2 (2.0-3.5)
--- NOTE | 2019-02-03 08:30 | NUR ---
Treatment Plan meeting with Dr. Looney, RN, AT, SW and genomics scientist. Plan for discharge Next week. Pt. will return to [facility].
--- NOTE | 2019-02-03 08:38 | NUR ---
Patient resting quietly with no c/o discomfort. Respirations easy and regular. Vital signs stable. No overt distress. MELISSA DAILEY
--- NOTE | 2019-02-03 11:22 | NUR ---
Spoke with Lin at [facility]. Notified of plans to discharge Next week. Clinical Updates faxed to facility .
--- NOTE | 2019-02-03 11:44 | NUR ---
AM GROUP/LEISURE INTERESTS PT ATTENDED MORNING GROUP THERAPY AND PARTICIPATED BY WORKING A CROSSWORD PUZZLE. PT WAS NOTED SEVERAL TIMES TO BE DOZING OFF. PT EXHIBITED NO AGITATION, AGGRESSION NOR DID PT MAKE INAPPROPRIATE NOISES WHILE IN GROUP
--- NOTE | 2019-02-03 13:14 | NUR ---
PT PLEASANT, SOME INTERMITTENT CONFUSION PT ASSESSED FOR ORIENTATION LEVEL, AFFECT AND MOOD. ASSESSED FOR SI/HI. ASSESSED FOR HALLUCINATIONS AND DELUSIONS. ADMINISTERED MEDICATIONS PRESCRIBED. PT ALERT, ORIENTED TO PERSON, PLACE, TIME. PT MOOD IS STABLE, AFFECT IS APPROPRIATE. PT FOUND READING BOOK IN ROOM, PT DISCUSSED SABIANIST AND FEELINGS, WHILE READING A MEMOIR OF A PREACHER. PT STATES HE IS FEELING GOOD TODAY. NO HALLUCINATIONS OR DELUSIONS. MEDICATION COMPLIANT WITHOUT DIFFICULTY WILL CONTINUE TO REDIRECT AND REORIENT APPROPRIATE. WILL PROVIDE 1:1 APPROPRIATE. WILL ENCOURAGE PARTICIPATION IN GROUP THERAPY FOR SOCIALIZATION AND SUPPORT. WILL ENCOURAGE CONTINUED MEDICATION COMPLIANCE. Q15 MIN MONITORING PER POLICY.
[2019-02-03 19:29] VITALS: BP 108/72
--- NOTE | 2019-02-03 23:58 | NUR ---
P-CONFUSION I-REDIRECTION WITH 1:1 THERAPEUTIC INTERVENTIONS. EDUCATE AND ENCOURAGE MEDICATION COMPLAINCE. R-PATIENT WITH NO HALLCINATIONS OR DELUSIONS, PATIENT WITH NO SUICIDAL OR HOMICIDAL IDEATIONS P-CONTINUE TO ENCOURAGE MEDICATION COMPLIANCE, CONTINUE TO PRESENT REALITY, ENCOURAGE GROUP THERAPY WHILE AWAKE
--- NOTE | 2019-02-04 01:00 | NUR ---
24 HR chart check completed.
--- NOTE | 2019-02-04 06:48 | NUR ---
PATIENT SLEPT 8 HOURS OF UNINTERRUPTED SLEEP THROUGHOUT SHIFT. Q 15 MINUTE CHECKS MAINTAINED
[2019-02-04 07:37] LABS: INTERNATIONAL NORM RATIO 3.6 (2.0-3.5)
[2019-02-04 08:29] VITALS: BP 138/78
--- NOTE | 2019-02-04 11:49 | NUR ---
AM/EXERCISES/REMINISCE/ART PT ATTENDED AND PARTICIPATED IN GROUP. PT PLEASNAT AND ON TASK WITH NO AGIATATION OR OBSESSIONS EXPRESSED. PT WILL CONTINUE TO ATTEND AND PARTICIPATE IN FUTRUE GROUP SESSIONS.
--- NOTE | 2019-02-04 14:37 | NUR ---
PT WITHDRAWN TO SELF. REDIRECTED, ENCOURAGED TO INTERACT WITH PEERS AND STAFF. PT ATTENDED GROUP THERAPY, ACTIVELY PARTICIPATING. STATES HE FEELS GOOD, DENIES SI/HI. WILL CONTINUE TO ENCOURAGE INTERACTION WITH PEERS AND STAFF. WILL ENCOURAGE PARTICIPATION IN GROUP THERAPY FOR SUPPORT AND SOCIALIZATION.
--- NOTE | 2019-02-04 15:57 | NUR ---
PM/MUSIC/GAMES PT ATTENDED AND PARTICIPATED IN GROUP. PT FALLING ASLEEP ON AND OFF BUT EASILY AWAKENED TO PARTICIPATED WITH GAME. PT DFID NOT EXPRESS ANY AGGRESSION OR AGITATION AT THIS TIME AND WILL CONTINUE TO ATTEND AND PARTICIPATE TO BEST OF PT ABILITY.
[2019-02-04 19:50] VITALS: BP 113/81
--- NOTE | 2019-02-04 23:40 | NUR ---
P-CONFUSION, ISOLATIVE I-REDIRECTION WITH 1:1 THERAPEUTIC INTERVENTIONS AND PRESENT REALITY. EDUCATE AND ENCOURAGE MEDICATION COMPLAINCE. R-PATIENT WITH NO HALLCINATIONS OR DELUSIONS, PATIENT WITH NO SUICIDAL OR HOMICIDAL IDEATIONS. PATIENT ISOLATIVE TO ROOM THIS SHIFT. PATIENT MEDICATION COMPLIANT AT HS. P-CONTINUE TO ENCOURAGE MEDICATION COMPLIANCE, CONTINUE TO PRESENT REALITY, ENCOURAGE GROUP THERAPY WHILE AWAKE
--- NOTE | 2019-02-05 00:34 | NUR ---
24 HR chart check completed.
--- NOTE | 2019-02-05 06:24 | NUR ---
PATIENT SLEPT 8 HOURS WITH ONE INTERRUPTION OF SLEEP THROUGHOUT SHIFT. Q 15 MINUTE CHECKS MAINTAINED
[2019-02-05 07:38] LABS: INTERNATIONAL NORM RATIO 2.7 (2.0-3.5)
[2019-02-05 08:08] VITALS: BP 101/58
--- NOTE | 2019-02-05 11:40 | NUR ---
DR. CA ON UNIT TO ASSESS PATIENT.
--- NOTE | 2019-02-05 12:11 | NUR ---
AM/BRAIN GAMES/MUSIC PT ATTENDED AND PARTICIPATED IN GROUP. PT FALLING ASLEEP ON AND OFF ENTIRE TIME BUT DI DNOT EXPRESS ANY AGITATION OR OBSESSIONS. PT WILL CONTINEU TO ATTEND AN DPARTICIPATE IN FUTURE GROUP SESSIONS.
--- NOTE | 2019-02-05 15:35 | NUR ---
PATIENT ALERT AND ORIENTED TO PERSON, PLACE, TIME AND SITUATION;ABLE TO VOICE NEEDS. MOOD IS STABLE. DENIES ANY HALLUCINATIONS, DELUSION, HI/SI OR PAIN. PARTICIPATED IN GROUP SESSION, INTERACTIVE WITH STAFF. Q 15 MINUTE SAFETY CHECKS MAINTAINED. MEDICATION COMPLAINT. 1 PERSON ASSIST WITH ACTIVITIES OF DAILY LIVING-VERABL CUEING REQUIRE AND NEEDED. CONTINENT OF BOWEL AND BLADDER. SET UP FOR MEALS, INTAKES ARE GOOD WITH ADEQUATE FLUIDS. AMBULATORY USING WALKER, STEADY GAIT. CONTINUE TO MONITOR MOOD, PROVIDE ONE ON ONE AND REDIRECTION NEEDED.
--- NOTE | 2019-02-05 16:16 | NUR ---
Shift chart check completed.
[2019-02-05 19:30] VITALS: BP 140/50
--- NOTE | 2019-02-05 22:19 | NUR ---
ISOLATIVE TO ROOM, PLEASENT AND INTERACTIVE WITH STAFF. MEDICATION COMPLIANT. WILL CONTINUE TO MONITOR FOR CHANGES IN BEHAVIOR AND MOOD. DECLINED 1:1 DUE TO BEING TIRED.
--- NOTE | 2019-02-06 04:17 | NUR ---
24 HR chart check completed.
--- NOTE | 2019-02-06 05:58 | NUR ---
SLEPT WELL PAST 2130PM WITH MINIMAL AWAKENING
[2019-02-06 08:00] VITALS: BP 131/69
--- NOTE | 2019-02-06 11:36 | NUR ---
AM GROUP PT WAS PRESENT FOR MORNING GROUP THERAPY BUT CHOSE NOT TO PARTICIPATE. PT SAT AT A TABLE WITH HEAD DOWN NAPPING.
--- NOTE | 2019-02-06 14:31 | NUR ---
PATIENT IS ALERT TO PERSON, PLACE, TIME AND SITUATION; ABLE TO VOICE NEEDS. MOOD IS STABLE, STILLED DEPRESSED WITH FLAT AFFECT. PATIENT DENIES ANY HALLUCINATIONS, DELUSIONS, HI/SI OR PAIN. MEDICATION COMPLAINT. Q 15 MINUTE SAFETY CHECKS MAINTAINED. INTERACTIVE WITH STAFF. PARTICIPATED IN GROUP SESSION. 1 PERSON ASSIST WITH ACTIVITIES OF DAILY LIVING, CONTINENT OF BOWEL AND BLADDER. SET UP FOR MEALS, INTAKES ARE GOOD WITH ADEQUATE FLUIDS. CONTINUE TO MONITOR FOR VERBAL AGGRESSION; PROVIDE ONE ON ONE AND REDIRECTION NEEDED.
--- NOTE | 2019-02-06 15:42 | NUR ---
PM GROUP PT DID NOT ATTEND AFTERNOON GROUP THERAPY. PT WAS IN BED NAPPING
[2019-02-06 19:28] VITALS: BP 112/53
--- NOTE | 2019-02-06 20:34 | NUR ---
.EVENING/LEISURE SKILLS PT ATTENDED BUT SLEPT ENTIRE TIME. PT WILL CONTINEU TO ATTEND AND BE ENCOURAGED TO PARTICIPATE IN FUTURE GROUP SESSIONS.
--- NOTE | 2019-02-06 22:00 | NUR ---
ISOLATIVE WITH PEERS BUT INTERACTIVE WITH STAFF. CRAIG. ALWAYS HAS SMILE ON HIS FACE. MEDICATION COMPLIANT WITH EDUCATION. USING WALKER FOR AMBULATION. TO BED AT HALF TIME. SAY GAME WAS "GOOD"
--- NOTE | 2019-02-07 02:33 | NUR ---
24 HR chart check completed.
--- NOTE | 2019-02-07 05:48 | NUR ---
SLEPT WELL PAST 2300PM. NO AWAKENINGS. APROX 6.5-7 HOURS SLEEPT
[2019-02-07 07:03] LABS: INTERNATIONAL NORM RATIO 1.9 (2.0-3.5)
[2019-02-07 07:42] VITALS: BP 136/72
--- NOTE | 2019-02-07 08:00 | NUR ---
Treatment Plan meeting with Dr. Looney, RN, AT, SW and Regional Guide. Plan for discharge .
--- NOTE | 2019-02-07 10:00 | NUR ---
DR. PARK ON UNIT TO ASSESS PATIENT.
--- NOTE | 2019-02-07 11:34 | NUR ---
AM GROUP PT WAS PRESENT FOR MORNING GROUP THERAPY BUT DID NOT PARTICIPATE. PT SAT AT TABLE WITH HEAD DOWN SLEEPING. PT WAS AWAKENED TO READ THE PAPER BUT WENT RIGHT BACK TO SLEEP.
--- NOTE | 2019-02-07 13:17 | NUR ---
Call to [facility] Spoke with CJ. Advised of Plans to discharge .
--- NOTE | 2019-02-07 13:22 | NUR ---
Spoke with Pt. INDU Koch. Notified of plans to discharge on . [facility] will transport with parts picker time 12:30 p.m.
--- NOTE | 2019-02-07 13:23 | NUR ---
Discharge Paperwork faxed to [facility].
--- NOTE | 2019-02-07 17:13 | NUR ---
DR. SALMERON NOTIFIED OF INR RESULTS.
--- NOTE | 2019-02-07 19:22 | NUR ---
PATIENT IS ALERT AND ORIENT TO PERSON, PLACE, TIME AND SITUATION; ABLE TO VOICE NEEDS. MOOD IS STABLE. DENIES ANY HALLUCINATIONS, DELUSIONS, HI/SI OR PAIN. MEDICATION COMPLIANT WITH EDUATION PROVIDED. Q 15 MINUTE SAFETY CHECKS MAINTAINED. ONE PERSON ASSIST WITH ACTIVITIES OF DAILY LIVING, CONTINENT OF BOWEL AND BLADDER. SET UP FOR MEALS, INTAKES ARE GOOD WITH ADEQUATE FLUIDS. CONTINUE TO MONITOR MOOD AND VERBAL AGGRESSION TOWARDS STAFF. PROVIDE ONE ON ONE AND REDIRECTION NEEDED.
[2019-02-07 19:51] VITALS: BP 140/70
--- NOTE | 2019-02-08 03:41 | NUR ---
24 HR chart check completed.
--- NOTE | 2019-02-08 06:20 | NUR ---
SLEPT WELL PASS [id number]
[2019-02-08 07:37] LABS: INTERNATIONAL NORM RATIO 1.7 (2.0-3.5)
[2019-02-08 07:47] VITALS: BP 127/52
--- NOTE | 2019-02-08 08:00 | NUR ---
Treatment Plan meeting with Dr. Looney, RN, AT, and International Relations Teacher. Plan for discharge . Pt. to return to [facility].
--- NOTE | 2019-02-08 11:45 | NUR ---
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 PT FELL ASLEEP SITTING UPRIGHT AT THE TABLE WITH PENCIL IN HAND. PT EXHIBITED NO AGITATION DURING GROUP NOR ANY INAPPROPRIATE BEHAVIORS.
--- NOTE | 2019-02-08 15:08 | NUR ---
PT PLEASANT COOPERATIVE WITH ALL ASPECTS OF CARE, MEDICATION COMPLIANT. NO SI/HI OR DELUSIONS, NO BARKING OR PRETENDING TO BE A DOG WITH STAFF. PT STATED THAT HE WAS JUST JOKING AROUND. CONTINUE 15 MIN CHECKS AT THIS TIME.
--- NOTE | 2019-02-08 15:39 | NUR ---
PM GROUP PT WAS PRESENT FOR AFTERNOON GROUP THERAPY BUT SLEPT THE ENTIRE TIME WITH HIS HEAD ON THE TABLE. PT WOULD ROUSE, BE POLITE, DECLINE ANY OFFERED ACTIVITY AND PUT HIS HEAD BACK DOWN AND SLEEP.
[2019-02-08 19:05] VITALS: BP 124/58
--- NOTE | 2019-02-08 21:59 | NUR ---
Patient alert and oriented x3. Patient isolative to room. Interactive with staff. No signs of any hallucinations noted at this time. Patient compliant with medications without any difficulty. Refused 1:1 due to being too tired. Plan to continue to encourage medication compliance and encourage more interaction with other patients. Q 15 minute safety checks continued and maintained. See [facility] flowsheet for further documentation.
--- NOTE | 2019-02-09 00:09 | NUR ---
24 HR chart check completed.
--- NOTE | 2019-02-09 05:17 | NUR ---
Patient slept approx. 7 hurs throughout shift. Q 15 minute safety checks continued and maintained.
[2019-02-09 07:07] LABS: INTERNATIONAL NORM RATIO 1.5 (2.0-3.5)
[2019-02-09 07:27] VITALS: BP 125/65
--- NOTE | 2019-02-09 07:58 | NUR ---
SPOKE WITH DR SALMERON AT [phone] RE: PT DISCHARGE FOR TODAY AND MEDICAL MEDS NEEDING COMPLETED. NO FURTHER ORDERS AT THIS TIME.
--- NOTE | 2019-02-09 09:30 | NUR ---
Discharge plan remains for patient to discharge today with return to [facility].
[2019-02-09] MEDS ORDERED: RISPERIDONE0.5 MG PO (10:24)
[2019-02-09] MEDS ORDERED: EXELON13.3 MG/21 T (10:24)
[2019-02-09] MEDS ORDERED: RISPERIDONE1 MG PO (10:24)
[2019-02-09] MEDS ORDERED: MIRTAZAPINE15 M2 PO (10:24)
[2019-02-09] MEDS ORDERED: MEMANTINE HCL10 MG PO (10:24)
--- NOTE | 2019-02-09 11:12 | NUR ---
Call placed to [facility]. Notified of Orders to discharge today. Discharge Paperwork Faxed to Facility.
--- NOTE | 2019-02-09 11:44 | NUR ---
AM GROUP PT WAS PRESENT FOR MORNING GROUP THERAPY AND PARTICIPATED BY PLAYING CARDS WITH PEERS. PT EXHIBITED NO AGITATION NOR ANY INAPPROPRIATE BEHAVIORS WHILE IN GROUP
[2019-02-09] MEDS ORDERED: WARFARIN SODIUM3 MG PO (12:07)
--- NOTE | 2019-02-09 12:32 | NUR ---
PT LEAVING AT THIS TIME WITH A FRIEND TO RETURN BACK TO THE [facility]. SINAN AT [facility] UPDATED ON PT ALREADY RECEIVING COUMADIN 3 MG TODAY. ALSO UPDATED ON NEW ORDERS, COUMADIN 3 MG AND PTINR LAB DAILY UNTIL THERAPEUTIC. ONCE THERAPEUTIC PHARMACY IS TO DOSE. [facility]AN ACKNOWLEDGED ORDERS.
--- NOTE | 2019-02-09 13:06 | NUR ---
Patient discharged today returning to [facility]. While at [facility], pt did not display inappropriate behaviors. Pt did have some memory gaps during conversation but was pleasant and cooperative with staff and peers. Follow-up will be with the visiting psychiatric group.
== END 2019-02-09 12:41 | disposition home or self-care (01) | DRG 885 ==
LOC: 3N 20:55
PROVIDERS: Internal Medicine; ADMIT Psychiatry & Neurology Psychiatry
DX: F33.3 Major depressive disorder, recurrent, severe with psychotic symptoms (principal); F23 Brief psychotic disorder; F02.81 Dementia in other diseases classified elsewhere, unspecified severity, with behavioral disturbance; G30.9 Alzheimer's disease, unspecified; I48.0 Paroxysmal atrial fibrillation; I50.9 Heart failure, unspecified; K21.9 Gastro-esophageal reflux disease without esophagitis; I11.0 Hypertensive heart disease with heart failure; Z86.73 Personal history of transient ischemic attack (TIA), and cerebral infarction without residual deficits; Z95.0 Presence of cardiac pacemaker; Z98.49 Cataract extraction status, unspecified eye; Z80.8 Family history of malignant neoplasm of other organs or systems; Z82.49 Family history of ischemic heart disease and other diseases of the circulatory system; Z79.82 Long term (current) use of aspirin; Z79.899 Other long term (current) drug therapy